=== PATIENT | female | born 1950 | race African-American/Black ===

== ENCOUNTER 2016-08-15 18:18 | Emergency (ER) | payer OTHER, MEDICAID ==
[~2016-08-15] VITALS: Ht 162.6 cm; Wt 99.8 kg
[~2016-08-15 18:18] MED LIST: ALBUAER3 IN; AML5T PO; ATOR20TA50 PO; CLON0.1T PO; DOCU100T15 PO; DONE10TA37 PO; ESCI20TA51 PO; GLIP-116 PO; GUA5DMLQ PO; HYDR25TA4 PO; LEVE100012 PO; LEVO250T45 PO; METF-489 PO; METH4PAK PO; SIMV-8 PO; SITA50TA PO
[2016-08-15 18:26] VITALS: BP 109/76
== END 2016-08-15 19:09 | disposition left against medical advice (07) ==
LOC: EDUNIT# 18:18 → ER 18:27
DX: F41.9 Anxiety disorder, unspecified (principal); Z53.21 Procedure and treatment not carried out due to patient leaving prior to being seen by health care provider

== ENCOUNTER 2016-11-12 13:50 | Inpatient (IN) | payer OTHER, MEDICAID ==
[~2016-11-12] VITALS: Ht 167.6 cm; Wt 92.7 kg
[~2016-11-12 13:50] MED LIST changes: +DEXTSYP8 PO; -GUA5DMLQ PO
[2016-11-12 15:41] LABS: Basophils # (auto) 0 uL; Basophils % (auto) 0.3 % (0.0-2.0); Eosinophils # (auto) 0.1 uL; Hematocrit 35.8 % (36.0-46.0); Hemoglobin 12.1 g/dL (12.2-16.2); Lymphocytes # (auto) 1.1 uL; Lymphocytes % (auto) 12.8 % (10.0-50.0); Mean Corpuscular Hemoglobin 30.2 pg (28.0-32.0); Mean Corpuscular Hgb Conc. 33.7 g/dL (32.0-36.0); Mean Corpuscular Volume 89.5 fL (80.0-100.0); Mean Platelet Volume 7.5 fL (7.4-10.4); Monocytes # (auto) 0.2 uL; Monocytes % (auto) 2.6 % (0.0-12.0); Neutrophils # (auto) 6.9 uL; Neutrophils % (auto) 83.3 % (37.0-80.0); Platelet Count (auto) 242 10^3/uL (140-450); Red Cell Distribution Width 13.4 % (11.6-16.0); White Blood Cell 8.3 10^3/uL (4.4-10.8)
[2016-11-12 16:03] LABS: Albumin 3.6 g/dL (3.4-5.0); Anion Gap 11 (5-15); Aspartate Aminotransferase 14 U/L (15-37); BUN/Creatinine Ratio 9.8; Blood Urea Nitrogen 11 mg/dL (7-18); Calcium 8.6 mg/dL (8.5-10.1); Carbon Dioxide 22 mmol/L (21-32); Chloride 115 mmol/L (98-107); GFR African American 63 mL/min; GFR Non-African American 52 mL/min; Glucose 122 mg/dL (74-106); Potassium 4.7 mmol/L (3.5-5.1); Sodium 148 mmol/L (136-145)
[2016-11-12 16:08] LABS: Alkaline Phosphatase 84 U/L (45-117); Bilirubin, Total 0.4 mg/dL (0.2-1.0); Total Protein 6.8 g/dL (6.4-8.2)
[2016-11-12 21:33] LABS: INR 0.97 (0.9-1.15); Partial Thromboplastin Time 28.9 sec (22.64-33.71); Prothrombin Time 10.6 sec (9.37-12.3)
[2016-11-12 21:46] LABS: Magnesium 2.4 mg/dL (1.6-2.6)
[2016-11-12] MEDS ORDERED: cefTRIAXone 1GM/50ML D5W 50 ML IV ONE (22:30)
[2016-11-12] MEDS ORDERED: AZITHROMYCIN 500MG/D5W 250ML 250 ML IV ONE (22:30)
[2016-11-12] MEDS ORDERED: DEXTROSE (50%) 50ML SYRG IV PRN (22:30)
[2016-11-12] MEDS: SOD CHL 0.45% 1,000 ML IV SCH (23:00)
[2016-11-12] MEDS ORDERED: LABETALOL HCL 5 MG/ML 4ML SYRINGE IV ONE (23:15)
[2016-11-13] VITALS (7 sets, daily range): BP systolic 115–156; BP diastolic 50–77
[2016-11-13] MEDS: ACCU-CHEK COMFORT CURVE STRIP VI SCH ×4 (06:12→22:02)
[2016-11-13] MEDS: InsuLIN REG 1unit/0.01ml Soln (100units/ml) SC SCH ×4 (06:13→22:00)
[2016-11-13] MEDS: ALBUTEROL SULF 2.5 MG/0.5ML(0.5%) NEB SOLN NEB SCH ×5 (06:30→23:46)
[2016-11-13] MEDS: IPRATROPIUM BROM 0.5 MG/2.5ML INH SOL NEB SCH ×5 (06:30→23:46)
[2016-11-13 06:57] LABS: Basophils # (auto) 0 uL; Basophils % (auto) 0.6 % (0.0-2.0); Eosinophils # (auto) 0.1 uL; Eosinophils % (auto) 0.8 % (0.0-7.0); Hematocrit 31.7 % (36.0-46.0); Hemoglobin 10.5 g/dL (12.2-16.2); Lymphocytes # (auto) 2.2 uL; Lymphocytes % (auto) 26.4 % (10.0-50.0); Mean Corpuscular Volume 90.8 fL (80.0-100.0); Mean Platelet Volume 7.9 fL (7.4-10.4); Monocytes # (auto) 0.4 uL; Monocytes % (auto) 4.2 % (0.0-12.0); Neutrophils # (auto) 5.7 uL; Platelet Count (auto) 235 10^3/uL (140-450); Red Cell Distribution Width 12.9 % (11.6-16.0); White Blood Cell 8.4 10^3/uL (4.4-10.8)
[2016-11-13 07:04] LABS: Calcium 8.3 mg/dL (8.5-10.1); Potassium 4.1 mmol/L (3.5-5.1)
[2016-11-13 07:12] LABS: BUN/Creatinine Ratio 13.5
[2016-11-13] MEDS: cefTRIAXone 1GM/50ML D5W 50 ML IV SCH (09:34)
[2016-11-13] MEDS: cloNIDine HCL 0.1 MG TAB PO SCH ×2 (10:32→22:00)
[2016-11-13] MEDS: AZITHROMYCIN 500MG/D5W 250ML 250 ML IV SCH (10:32)
[2016-11-13] MEDS ORDERED: LEVETIRACETAM 500 MG TAB PO ONE (14:45)
[2016-11-13] MEDS ORDERED: amLODIPine BESYLATE 5 MG TAB PO ONE (14:45)
[2016-11-13] MEDS ORDERED: HCTZ 25 MG TAB PO ONE (14:45)
[2016-11-13] MEDS: ASPirin-EC 81 mg tab PO SCH (17:46)
[2016-11-13] MEDS: SOD CHL 0.45% 1,000 ML IV SCH (18:23)
[2016-11-13] MEDS: LEVETIRACETAM 500 MG TAB PO SCH (21:35)
[2016-11-13] MEDS: ATORVASTATIN 20 MG TAB PO SCH (21:35)
[2016-11-13] MEDS: DONEPEZIL HYDROCHLORIDE 5 MG TAB PO SCH (21:39)
[2016-11-13] MEDS ORDERED: ACETAMINOPHEN 325 MG TAB PO PRN (23:30)
[2016-11-14] VITALS (7 sets, daily range): BP systolic 102–136; BP diastolic 49–96
[2016-11-14] MEDS: InsuLIN REG 1unit/0.01ml Soln (100units/ml) SC SCH ×4 (06:10→22:00)
[2016-11-14] MEDS: ACCU-CHEK COMFORT CURVE STRIP VI SCH ×4 (06:10→21:59)
[2016-11-14] MEDS: ALBUTEROL SULF 2.5 MG/0.5ML(0.5%) NEB SOLN NEB SCH ×3 (07:02→19:37)
[2016-11-14] MEDS: IPRATROPIUM BROM 0.5 MG/2.5ML INH SOL NEB SCH ×3 (07:02→19:37)
[2016-11-14 07:47] LABS: Basophils # (auto) 0 uL; Basophils % (auto) 0.6 % (0.0-2.0); Eosinophils # (auto) 0.3 uL; Eosinophils % (auto) 5.2 % (0.0-7.0); Hematocrit 31.2 % (36.0-46.0); Hemoglobin 10.4 g/dL (12.2-16.2); Lymphocytes # (auto) 2.2 uL; Lymphocytes % (auto) 34.1 % (10.0-50.0); Mean Corpuscular Hemoglobin 30.1 pg (28.0-32.0); Mean Corpuscular Hgb Conc. 33.5 g/dL (32.0-36.0); Mean Corpuscular Volume 89.8 fL (80.0-100.0); Mean Platelet Volume 7.7 fL (7.4-10.4); Monocytes # (auto) 0.5 uL; Monocytes % (auto) 7.9 % (0.0-12.0); Neutrophils # (auto) 3.3 uL; Neutrophils % (auto) 52.2 % (37.0-80.0); Platelet Count (auto) 219 10^3/uL (140-450); Red Cell Distribution Width 12.8 % (11.6-16.0); White Blood Cell 6.4 10^3/uL (4.4-10.8)
[2016-11-14 08:10] LABS: Calcium 7.7 mg/dL (8.5-10.1); Potassium 3.8 mmol/L (3.5-5.1)
[2016-11-14] MEDS: cefTRIAXone 1GM/50ML D5W 50 ML IV SCH (08:10)
[2016-11-14] MEDS: AZITHROMYCIN 500MG/D5W 250ML 250 ML IV SCH (09:46)
[2016-11-14] MEDS: HCTZ 25 MG TAB PO SCH (09:47)
[2016-11-14] MEDS: ASPirin-EC 81 mg tab PO SCH (09:47)
[2016-11-14] MEDS: cloNIDine HCL 0.1 MG TAB PO SCH ×2 (09:47→21:59)
[2016-11-14] MEDS: LEVETIRACETAM 500 MG TAB PO SCH ×2 (09:47→21:59)
[2016-11-14] MEDS: amLODIPine BESYLATE 5 MG TAB PO SCH (09:48)
[2016-11-14 11:31] LABS: Temperature: 23.1 C (20.0-25.0)
[2016-11-14] MEDS: SOD CHL 0.45% 1,000 ML IV SCH (14:30)
[2016-11-14 15:03] LABS: Urine Bilirubin Negative (Negative); Urine Blood Negative /uL (Negative); Urine Color Yellow (Yellow); Urine Glucose Normal (Normal); Urine Ketone Negative (Negative); Urine Nitrite Negative (Negative); Urine RBC 1 /hpf (0 - 4); Urine Squamous Epithelial Cell FEW /hpf (<5); Urine Urobilinogen Normal (Negative); Urine pH 5.5 (5.0-8.0)
[2016-11-14] MEDS: DONEPEZIL HYDROCHLORIDE 5 MG TAB PO SCH (21:59)
[2016-11-14] MEDS: ATORVASTATIN 20 MG TAB PO SCH (21:59)
[2016-11-15 05:00] VITALS: BP 107/51
[2016-11-15] MEDS: InsuLIN REG 1unit/0.01ml Soln (100units/ml) SC SCH ×3 (06:14→17:41)
[2016-11-15] MEDS: ACCU-CHEK COMFORT CURVE STRIP VI SCH ×3 (06:14→17:42)
[2016-11-15] MEDS: IPRATROPIUM BROM 0.5 MG/2.5ML INH SOL NEB SCH ×4 (06:28→18:00)
[2016-11-15] MEDS: ALBUTEROL SULF 2.5 MG/0.5ML(0.5%) NEB SOLN NEB SCH ×4 (06:28→18:00)
[2016-11-15 09:00] VITALS: BP 137/61
[2016-11-15] MEDS: cloNIDine HCL 0.1 MG TAB PO SCH (11:16)
[2016-11-15] MEDS: HCTZ 25 MG TAB PO SCH (11:17)
[2016-11-15] MEDS: amLODIPine BESYLATE 5 MG TAB PO SCH (11:18)
[2016-11-15] MEDS: ASPirin-EC 81 mg tab PO SCH (11:18)
[2016-11-15] MEDS: LEVETIRACETAM 500 MG TAB PO SCH (11:18)
[2016-11-15] MEDS: cefTRIAXone 1GM/50ML D5W 50 ML IV SCH (11:18)
[2016-11-15 12:27] VITALS: BP 152/73
[2016-11-15] MEDS: SOD CHL 0.45% 1,000 ML IV SCH (14:35)
[2016-11-15] MEDS: AZITHROMYCIN 500MG/D5W 250ML 250 ML IV SCH (14:35)
[2016-11-15 17:00] VITALS: BP 133/69
[2016-11-15] MEDS ORDERED: AZI250T PO (18:33)
[2016-11-15] MEDS ORDERED: ASP81EC PO (18:33)
[2016-11-15 18:47] VITALS: BP 152/73
[2016-11-15 20:00] VITALS: BP 136/75
[2016-11-16] MEDS ORDERED: AZITHROMYCIN 250 MG TAB PO SCH (10:00)
== END 2016-11-15 20:00 | disposition home or self-care (01) | DRG 637 ==
LOC: ER 13:50 → OVERFLOW 13:51 → WEST WING 11-13 00:34
PROVIDERS: ADMIT Internal Medicine; ATTEND Nurse Practitioner Acute Care
DX: E11.65 Type 2 diabetes mellitus with hyperglycemia (principal); G93.41 Metabolic encephalopathy; E87.0 Hyperosmolality and hypernatremia; E11.649 Type 2 diabetes mellitus with hypoglycemia without coma; J20.9 Acute bronchitis, unspecified; E78.5 Hyperlipidemia, unspecified; F17.210 Nicotine dependence, cigarettes, uncomplicated; F32.9 Major depressive disorder, single episode, unspecified; D64.9 Anemia, unspecified; F03.90 Unspecified dementia, unspecified severity, without behavioral disturbance, psychotic disturbance, mood disturbance, and anxiety; I10 Essential (primary) hypertension; I25.10 Atherosclerotic heart disease of native coronary artery without angina pectoris; Z79.899 Other long term (current) drug therapy; Z79.82 Long term (current) use of aspirin; Z90.710 Acquired absence of both cervix and uterus; Z82.49 Family history of ischemic heart disease and other diseases of the circulatory system; Z86.73 Personal history of transient ischemic attack (TIA), and cerebral infarction without residual deficits; Z83.3 Family history of diabetes mellitus; Z82.3 Family history of stroke
CPT/HCPCS: 36415; 70450; 71010; 80048; 80053; 81001; 82607; 82746; 82962; 83036; 83735; 84439; 84443; 84484; 85025; 85610; 85730; 87086; 93005; 94640; 94761; 95819; 96365; 96368; 96375; J0696; J1815; J3490

== ENCOUNTER 2017-04-04 19:44 | Emergency (ER) | payer MEDICARE, MEDICAID ==
[~2017-04-04] VITALS: Ht 167.6 cm; Wt 113.4 kg
[~2017-04-04 19:44] MED LIST changes: +ALPR0.25 PO; +ASP81EC PO; -DEXTSYP8 PO; -ESCI20TA51 PO; -LEVE100012 PO; -LEVO250T45 PO; -METH4PAK PO; -SITA50TA PO
[2017-04-04 20:19] LABS: Basophils # (auto) 0 uL; Basophils % (auto) 0.3 % (0.0-2.0); Eosinophils # (auto) 0.1 uL; Eosinophils % (auto) 0.7 % (0.0-7.0); Hematocrit 36.9 % (36.0-46.0); Hemoglobin 12.2 g/dL (12.2-16.2); Lymphocytes # (auto) 1.2 uL; Lymphocytes % (auto) 11.1 % (10.0-50.0); Mean Corpuscular Hemoglobin 29.8 pg (28.0-32.0); Mean Corpuscular Volume 90.3 fL (80.0-100.0); Mean Platelet Volume 7.5 fL (6.9-10.8); Monocytes # (auto) 0.4 uL; Monocytes % (auto) 4.1 % (0.0-12.0); Neutrophils # (auto) 8.8 uL; Neutrophils % (auto) 83.8 % (37.0-80.0); Platelet Count (auto) 235 10^3/uL (140-450); Red Cell Distribution Width 13.3 % (11.8-14.3); White Blood Cell 10.6 10^3/uL (4.4-10.8)
[2017-04-04 20:37] LABS: Albumin 3.6 g/dL (3.4-5.0); Anion Gap 13 (5-15); Aspartate Aminotransferase 12 U/L (15-37); BUN/Creatinine Ratio 23.1; Blood Urea Nitrogen 33 mg/dL (7-18); Calcium 8.7 mg/dL (8.5-10.1); Carbon Dioxide 27 mmol/L (21-32); Chloride 103 mmol/L (98-107); GFR African American 47 mL/min; GFR Non-African American 39 mL/min; Glucose 102 mg/dL (74-106); Magnesium 2.1 mg/dL (1.6-2.6); Sodium 143 mmol/L (136-145)
[2017-04-04 20:39] LABS: Alkaline Phosphatase 91 U/L (45-117); Bilirubin, Total 0.4 mg/dL (0.2-1.0); Total Protein 6.8 g/dL (6.4-8.2)
[2017-04-04 22:29] LABS: Urine Bilirubin Negative (Negative); Urine Blood Negative /uL (Negative); Urine Color Yellow (Yellow); Urine Glucose Normal (Normal); Urine Ketone Negative (Negative); Urine Nitrite Negative (Negative); Urine RBC <1 /hpf (0 - 4); Urine Squamous Epithelial Cell FEW /hpf (<5); Urine Urobilinogen Normal (Negative); Urine pH 5.5 (5.0-8.0)
[2017-04-05 00:16] VITALS: BP 126/37
== END 2017-04-05 00:18 | disposition home or self-care (01) ==
LOC: ER 19:44 → EDBD 19:44 → ER 04-05 00:18
DX: R41.82 Altered mental status, unspecified (principal); F03.90 Unspecified dementia, unspecified severity, without behavioral disturbance, psychotic disturbance, mood disturbance, and anxiety; F17.210 Nicotine dependence, cigarettes, uncomplicated; J44.9 Chronic obstructive pulmonary disease, unspecified; I25.10 Atherosclerotic heart disease of native coronary artery without angina pectoris; F41.9 Anxiety disorder, unspecified; F32.9 Major depressive disorder, single episode, unspecified; E11.9 Type 2 diabetes mellitus without complications; Z86.73 Personal history of transient ischemic attack (TIA), and cerebral infarction without residual deficits; I11.0 Hypertensive heart disease with heart failure; I50.9 Heart failure, unspecified; E78.5 Hyperlipidemia, unspecified; Z88.1 Allergy status to other antibiotic agents; Z88.6 Allergy status to analgesic agent; Z90.710 Acquired absence of both cervix and uterus
CPT/HCPCS: 36415; 70450; 80053; 81001; 83735; 84484; 85025

== ENCOUNTER 2018-07-19 17:54 | Emergency (ER) | payer MEDICARE, MEDICAID ==
[~2018-07-19] VITALS: Ht 160 cm; Wt 90.7 kg
[~2018-07-19 17:54] MED LIST changes: -DONE10TA37 PO; +DONE10TA40 PO; +KEP500T PO
[2018-07-19 19:58] LABS: Alanine Aminotransferase 11 U/L (13-56); Albumin 3.5 g/dL (3.4-5.0); Anion Gap 11 (5-15); Aspartate Aminotransferase 12 U/L (15-37); BUN/Creatinine Ratio 10.6; Blood Urea Nitrogen 15 mg/dL (7-18); Calcium 8.2 mg/dL (8.5-10.1); Carbon Dioxide 21 mmol/L (21-32); Chloride 106 mmol/L (98-107); GFR African American 47 mL/min; GFR Non-African American 39 mL/min; Glucose 62 mg/dL (74-106); Potassium 3.9 mmol/L (3.5-5.1); Sodium 138 mmol/L (136-145)
[2018-07-19 20:00] LABS: Alkaline Phosphatase 95 U/L (45-117); Bilirubin, Total 0.4 mg/dL (0.2-1.0); INR 0.94 (0.9-1.15); Partial Thromboplastin Time 29.9 sec (23.78-33.04); Prothrombin Time 10.1 sec (9.27-12.13); Total Protein 6.7 g/dL (6.4-8.2)
[2018-07-19 20:09] LABS: Basophils # (auto) 0.1 uL; Basophils % (auto) 0.7 % (0.0-2.0); Eosinophils # (auto) 0.3 uL; Eosinophils % (auto) 3.4 % (0.0-7.0); Hematocrit 39.2 % (36.0-46.0); Lymphocytes # (auto) 2.2 uL; Mean Corpuscular Hgb Conc. 33.2 g/dL (32.0-36.0); Mean Corpuscular Volume 90.4 fL (80.0-100.0); Monocytes # (auto) 0.4 uL; Monocytes % (auto) 5.2 % (0.0-12.0); Neutrophils # (auto) 4.6 uL; Neutrophils % (auto) 61.7 % (37.0-80.0); Nucleated Red Blood Cells % 0.1 %; Platelet Count (auto) 272 10^3/uL (140-450); Red Blood Cells 4.34 10^6/uL (4.0-5.20); Red Cell Distribution Width 12.2 % (11.8-14.3); White Blood Cell 7.5 10^3/uL (4.4-10.8)
[2018-07-19] MEDS ORDERED: AMLO5TAB13 PO (21:54)
[2018-07-19] MEDS ORDERED: METF-370 PO (21:54)
[2018-07-19] MEDS ORDERED: GLIP-116 PO (21:54)
[2018-07-19] MEDS ORDERED: OXCA600T3 PO (21:54)
[2018-07-19 22:35] VITALS: BP 114/64
== END 2018-07-19 23:37 | disposition home or self-care (01) ==
LOC: ER 17:54 → EDBD 17:54 → ER 23:37
DX: R41.82 Altered mental status, unspecified (principal); E11.649 Type 2 diabetes mellitus with hypoglycemia without coma; I25.119 Atherosclerotic heart disease of native coronary artery with unspecified angina pectoris; J44.9 Chronic obstructive pulmonary disease, unspecified; E78.5 Hyperlipidemia, unspecified; I11.0 Hypertensive heart disease with heart failure; I50.9 Heart failure, unspecified; Z90.49 Acquired absence of other specified parts of digestive tract; Z88.1 Allergy status to other antibiotic agents; Z88.5 Allergy status to narcotic agent; Z79.82 Long term (current) use of aspirin; Z79.84 Long term (current) use of oral hypoglycemic drugs; Z79.899 Other long term (current) drug therapy; Z86.73 Personal history of transient ischemic attack (TIA), and cerebral infarction without residual deficits
CPT/HCPCS: 36415; 70450; 71045; 80053; 82962; 83880; 84484; 85025; 85379; 85610; 85730; 93005

== ENCOUNTER 2018-08-20 00:03 | Emergency (ER) | payer MEDICARE, MEDICAID ==
[~2018-08-20] VITALS: Ht 165.1 cm; Wt 95.3 kg
[~2018-08-20 00:03] MED LIST changes: -AML5T PO; +AMLO5TAB13 PO; +METF-370 PO; -METF-489 PO; +OXCA600T3 PO
[2018-08-20] MEDS ORDERED: DEXTROSE 10% 250 ML IV ONE (00:30)
[2018-08-20 00:39] LABS: Basophils # (auto) 0 uL; Basophils % (auto) 0.4 % (0.0-2.0); Eosinophils # (auto) 0 uL; Eosinophils % (auto) 0.6 % (0.0-7.0); Hematocrit 39.2 % (36.0-46.0); Hemoglobin 12.8 g/dL (12.2-16.2); Lymphocytes % (auto) 13.1 % (10.0-50.0); Mean Corpuscular Hemoglobin 29.1 pg (28.0-32.0); Mean Corpuscular Hgb Conc. 32.7 g/dL (32.0-36.0); Monocytes # (auto) 0.4 uL; Monocytes % (auto) 4.5 % (0.0-12.0); Neutrophils # (auto) 6.5 uL; Neutrophils % (auto) 81.4 % (37.0-80.0); Nucleated Red Blood Cells % 0.1 %; Platelet Count (auto) 317 10^3/uL (140-450); Red Cell Distribution Width 12.6 % (11.8-14.3); White Blood Cell 7.9 10^3/uL (4.4-10.8)
[2018-08-20 00:55] LABS: Albumin 3.5 g/dL (3.4-5.0); BUN/Creatinine Ratio 11.4; Calcium 8.9 mg/dL (8.5-10.1); Potassium 4.2 mmol/L (3.5-5.1)
[2018-08-20 00:58] LABS: Bilirubin, Total 0.2 mg/dL (0.2-1.0)
[2018-08-20 01:42] LABS: INR 0.88 (0.9-1.15); Partial Thromboplastin Time 29.1 sec (23.78-33.04); Prothrombin Time 9.5 sec (9.27-12.13)
[2018-08-20 01:47] LABS: Blood Alcohol < 3.0 mg/dL (0-5)
[2018-08-20 04:31] VITALS: BP 119/68
== END 2018-08-20 04:33 | disposition home or self-care (01) ==
LOC: ER 00:03 → EDBD 00:03 → ER 04:33
DX: E11.649 Type 2 diabetes mellitus with hypoglycemia without coma (principal); I11.0 Hypertensive heart disease with heart failure; I50.9 Heart failure, unspecified; E78.5 Hyperlipidemia, unspecified; Z86.73 Personal history of transient ischemic attack (TIA), and cerebral infarction without residual deficits; Z90.710 Acquired absence of both cervix and uterus; Z90.89 Acquired absence of other organs; Z88.6 Allergy status to analgesic agent; Z88.1 Allergy status to other antibiotic agents; Z79.899 Other long term (current) drug therapy
CPT/HCPCS: 36415; 70450; 71045; 80053; 80320; 82962; 83735; 84484; 85025; 85610; 85730; 93005

== ENCOUNTER 2018-10-26 13:34 | Inpatient (IN) | payer MEDICARE, MEDICAID ==
[~2018-10-26] VITALS: Ht 167.6 cm; Wt 81.8 kg
[2018-10-26] MEDS ORDERED: SODIUM CHLORIDE 0.9% 500 ML IVB ONE (13:37)
[2018-10-26] MEDS ORDERED: LORazepam 2MG/ML-1ML VIAL IV ONE (13:45)
[2018-10-26 14:52] LABS: Basophils # (auto) 0.1 uL; Eosinophils # (auto) 0 uL; Eosinophils % (auto) 0.1 % (0.0-7.0); Hematocrit 35.7 % (36.0-46.0); Hemoglobin 11.9 g/dL (12.2-16.2); Lymphocytes # (auto) 1.5 uL; Lymphocytes % (auto) 19.5 % (10.0-50.0); Mean Corpuscular Hemoglobin 29.9 pg (28.0-32.0); Mean Corpuscular Hgb Conc. 33.3 g/dL (32.0-36.0); Mean Corpuscular Volume 89.8 fL (80.0-100.0); Monocytes # (auto) 0.4 uL; Monocytes % (auto) 5.4 % (0.0-12.0); Neutrophils # (auto) 5.5 uL; Platelet Count (auto) 291 10^3/uL (140-450); Red Blood Cells 3.98 10^6/uL (4.0-5.20); Red Cell Distribution Width 12.4 % (11.8-14.3); White Blood Cell 7.5 10^3/uL (4.4-10.8)
[2018-10-26 15:27] LABS: Cannabinoid Screen, Urine NEGATIVE (NEGATIVE)
[2018-10-26 15:28] LABS: Chloride 107 mmol/L (98-107); Potassium 3.8 mmol/L (3.5-5.1); Sodium 140 mmol/L (136-145)
[2018-10-26 15:34] LABS: Alanine Aminotransferase 12 U/L (13-56); Albumin 3.4 g/dL (3.4-5.0); Alkaline Phosphatase 99 U/L (45-117); Anion Gap 7 (5-15); Aspartate Aminotransferase 10 U/L (15-37); BUN/Creatinine Ratio 13.3; Bilirubin, Total 0.5 mg/dL (0.2-1.0); Blood Alcohol < 3.0 mg/dL (0-5); Blood Urea Nitrogen 18 mg/dL (7-18); Calcium 8.2 mg/dL (8.5-10.1); Carbon Dioxide 26 mmol/L (21-32); GFR African American 50 mL/min; GFR Non-African American 42 mL/min; Glucose 130 mg/dL (74-106); Magnesium 2.4 mg/dL (1.6-2.6); Total Protein 6.5 g/dL (6.4-8.2)
[2018-10-26 15:35] LABS: Alcohol, Urine < 3.0 mg/dL (0-5); Amphetamine Screen, Urine NEGATIVE (NEGATIVE); Barbiturate Scree,Urine NEGATIVE (NEGATIVE); Benzodiazephine Screen, Urine NEGATIVE (NEGATIVE); Cocaine Screen, Urine NEGATIVE (NEGATIVE); Opiate Scree,Urine NEGATIVE (NEGATIVE); Phencyclidine Screen, Urine NEGATIVE (NEGATIVE)
[2018-10-26 15:42] LABS: Urine Bacteria NONE SEEN /hpf (None Seen); Urine Blood Negative /uL (Negative); Urine Specific Gravity 1.011 (1.001-1.035); Urine WBC 1 /hpf (0 - 5)
[2018-10-26] MEDS ORDERED: DEXTROSE (50%) 50ML SYRG IV PRN (16:30)
[2018-10-26] MEDS ORDERED: NITROGLYCERIN 0.4 MG SL TAB SL PRN (16:30)
[2018-10-26] MEDS ORDERED: traMADol HCL 50 MG TAB PO PRN (16:30)
[2018-10-26] MEDS ORDERED: ACETAMINOPHEN 500 MG TAB PO PRN (16:30)
[2018-10-26] MEDS ORDERED: LACTULOSE 20Gm/30ML SOLN PO PRN (16:30)
[2018-10-26] MEDS ORDERED: TEMAZEPAM 15 MG CAP PO PRN (16:30)
[2018-10-26] MEDS ORDERED: ONDANSETRON HCL 4 MG/2 ML VIAL IV PRN (16:30)
[2018-10-26] MEDS: SODIUM CHLORIDE 0.9% 1,000 ML IV SCH (16:44)
[2018-10-26] MEDS: InsuLIN REG 1unit/0.01ml Soln (100units/ml) SC SCH ×2 (17:00→22:00)
[2018-10-26] MEDS: ACCU-CHEK COMFORT CURVE STRIP VI SCH ×2 (17:16→22:01)
[2018-10-26] MEDS ORDERED: SIMVASTATIN PO SCH (18:00)
[2018-10-26] MEDS: cloNIDine HCL 0.1 MG TAB PO SCH (22:00)
[2018-10-26] MEDS: DOCUSATE SOD 100 MG CAP PO SCH (22:00)
[2018-10-26] MEDS ORDERED: LEVETIRACETAM 500 MG TAB PO SCH (22:00)
[2018-10-26] MEDS ORDERED: DONEPEZIL HYDROCHLORIDE 5 MG TAB PO SCH (22:00)
[2018-10-26] MEDS ORDERED: OXcarbazepine 300 MG TAB PO SCH (22:00)
[2018-10-26] MEDS: ATORVASTATIN 20 MG TAB PO SCH (22:01)
[2018-10-26 23:55] VITALS: BP 148/72
--- NOTE | 2018-10-26 23:55 | NUR ---
Telemetry admit from ER LLOYDMOLLY admitted to Telemetry unit after SBAR received. Patient oriented to Yasmeen Rabago, RN primary RN, unit, room, bed, and unit policies regarding patient care and visiting hours. Patient now on continuous telemetry monitoring, tele box # and telemetry reading on arrival to unit is . Patient placed on bedside oxygen, weighed by bedscale and encouraged to call if they need something. All questions and concerns addressed, patient verbalized understanding. Note: awake, confused, oriented x2, reoriented to time and situation, patient follows directions but at time does not answer questions. on room air with even and unlabored respirations. no s/s of distress or SOB. patient denies pain. IV to right EJ intact and patent infusing NS at 80ml/hr. Left hand IV intact and patent. daughter at bedside, answered admission questions. Rojas intact and draining to gravity. sitter at bedside. will continue care.
[2018-10-27] MEDS ORDERED: LAMO25TA2 PO (02:23)
[2018-10-27] MEDS ORDERED: POTA1080 PO (02:23)
[2018-10-27] MEDS: SODIUM CHLORIDE 0.9% 1,000 ML IV SCH (04:56)
[2018-10-27] MEDS: ACCU-CHEK COMFORT CURVE STRIP VI SCH (06:07)
[2018-10-27] MEDS: InsuLIN REG 1unit/0.01ml Soln (100units/ml) SC SCH (06:07)
--- NOTE | 2018-10-27 07:00 | NUR ---
Closing Note patient resting in bed on room air with even and unlabored respirations, no s/s of distress. IV intact and infusing NS at 80ml/hr. sitter at bedside. endorsed care to day shift FLAKITO Valdez.
--- NOTE | 2018-10-27 08:00 | NUR ---
Opening Shift Note Assumed care of patient, awake and alert, making jokes. Patient is up in the chair. Sitter reported she is not eating well. No S/S of distress/SOB or pain. Instructed on POC and to call for assist PRN, will continue to monitor for changes Q1hr and PRN.
[2018-10-27 09:00] VITALS: BP 124/55
[2018-10-27] MEDS ORDERED: ASPirin-EC 81 mg tab PO SCH (10:00)
[2018-10-27] MEDS ORDERED: PANTOPRAZOLE 40 MG TAB PO SCH (10:00)
[2018-10-27] MEDS ORDERED: ENOXAPARIN SOD 40 MG/0.4 ML SYRINGE SC SCH (10:00)
--- NOTE | 2018-10-27 10:20 | NUR ---
Family at bedside Family at bedside. MD at bedside. Patient sitting up talking to family. Significant other reported she is not herself. She doesn't know where she is and she was incontinent at home. He said usually she is oriented and making jokes. MD stated he would have Dr. Lai see her.
--- NOTE | 2018-10-27 10:45 | NUR ---
Held AM medications Significant other stated she does not take Keppra and Trileptal at home. She takes Lamictal 25 mg. He stated that if she is given the Keppra 1000 mg, she will be comatose. Talked with Dr. Daley and he said to hold the Keppra and Trileptal for now and consult Dr. Lai about the seizure medications. This nurse held all morning PO medications because patient sleeping and difficult to arouse. Unsafe to put anything in patient's mouth at this time. Will try again.
[2018-10-27] MEDS: cloNIDine HCL 0.1 MG TAB PO SCH ×2 (11:55→21:45)
[2018-10-27] MEDS: DOCUSATE SOD 100 MG CAP PO SCH ×2 (11:56→21:45)
[2018-10-27] MEDS: amLODIPine BESYLATE 5 MG TAB PO SCH (11:56)
--- NOTE | 2018-10-27 11:57 | NUR ---
ALERT PATIENT ALERT AND TALKATIVE. GAVE MORNING MEDICATIONS.
[2018-10-27 13:00] VITALS: BP 139/65
[2018-10-27] MEDS ORDERED: HYDROcodone-ACET 5/325MG TAB PO PRN (14:30)
--- NOTE | 2018-10-27 14:30 | NUR ---
MEDICATION CHANGES KEPPRA AND TRILEPTAL NOT GIVEN. FAMILY MEMBER STATED SHE DOESN'T TAKE THESE AT HOME. SHE TAKES LAMICTAL. TALKED WITH DR. BERRIOS ABOUT THESE MEDICATIONS. HE D/CD THE KEPPRA AND TRILEPTAL AND STARTED THE LAMICTAL HERE AT THE HOSPITAL.
[2018-10-27 16:56] VITALS: BP 123/77
[2018-10-27] MEDS: ATORVASTATIN 20 MG TAB PO SCH (21:45)
[2018-10-27] MEDS: lamoTRIgine 25 MG TAB PO SCH (21:45)
[2018-10-27 22:44] VITALS: BP 143/61
[2018-10-28 04:47] VITALS: BP 100/47
[2018-10-28 05:31] LABS: Basophils # (auto) 0 uL; Basophils % (auto) 0.7 % (0.0-2.0); Eosinophils # (auto) 0.1 uL; Eosinophils % (auto) 2.4 % (0.0-7.0); Hematocrit 30.5 % (36.0-46.0); Hemoglobin 10.4 g/dL (12.2-16.2); Lymphocytes # (auto) 2.2 uL; Lymphocytes % (auto) 38.1 % (10.0-50.0); Mean Corpuscular Hemoglobin 30.9 pg (28.0-32.0); Mean Corpuscular Hgb Conc. 34.2 g/dL (32.0-36.0); Mean Corpuscular Volume 90.3 fL (80.0-100.0); Monocytes # (auto) 0.4 uL; Monocytes % (auto) 7.4 % (0.0-12.0); Neutrophils % (auto) 51.4 % (37.0-80.0); Platelet Count (auto) 223 10^3/uL (140-450); Red Blood Cells 3.38 10^6/uL (4.0-5.20); Red Cell Distribution Width 12.2 % (11.8-14.3); White Blood Cell 5.8 10^3/uL (4.4-10.8)
[2018-10-28 05:59] LABS: BUN/Creatinine Ratio 14.8; Calcium 8.3 mg/dL (8.5-10.1); Potassium 3.9 mmol/L (3.5-5.1)
--- NOTE | 2018-10-28 08:00 | NUR ---
Opening Shift Note Assumed care of patient, awake and alert. Very confused. Patient pulled IV out of her left hand, this nurse saw it lying in the bed next to her. No S/S of distress/SOB or pain. Instructed on POC and to call for assist PRN, will continue to monitor for changes Q1hr and PRN.
[2018-10-28 09:13] VITALS: BP 148/71
[2018-10-28 10:29] LABS: Hematocrit 34.5 % (36.0-46.0); Hemoglobin 11.3 g/dL (12.2-16.2)
[2018-10-28] MEDS: SODIUM CHLORIDE 0.9% 1,000 ML IV SCH ×2 (10:43→22:30)
[2018-10-28] MEDS: cloNIDine HCL 0.1 MG TAB PO SCH ×2 (10:46→22:26)
[2018-10-28] MEDS: amLODIPine BESYLATE 5 MG TAB PO SCH (10:46)
[2018-10-28] MEDS: DOCUSATE SOD 100 MG CAP PO SCH ×2 (10:47→22:26)
[2018-10-28] MEDS: lamoTRIgine 25 MG TAB PO SCH ×2 (10:47→22:25)
[2018-10-28] MEDS: PANTOPRAZOLE 40 MG TAB PO SCH ×2 (10:47→22:25)
--- NOTE | 2018-10-28 13:00 | NUR ---
PATIENT/MD BERRIOS PATIENT IS CONFUSED TODAY. DR. BERRIOS SAW HER AND SAID HE HAS SEEN HER BEFORE AND THAT THIS IS HER BASELINE CONFUSION LEVEL. HE SAID SHE IS OK TO BE DISCHARGED WHEN DR. ENG FEELS SHE IS READY.
[2018-10-28 13:06] VITALS: BP 134/68
[2018-10-28 16:25] LABS: Hematocrit 37.8 % (36.0-46.0); Hemoglobin 12.7 g/dL (12.2-16.2)
[2018-10-28 17:04] VITALS: BP 147/72
--- NOTE | 2018-10-28 19:45 | NUR ---
Opening Shift Note Assumed care of patient, awake and pleasantly confused. No S/S of distress/SOB or pain. data entry coordinator at bedside.
[2018-10-28 21:30] VITALS: BP 140/74
[2018-10-28] MEDS: ATORVASTATIN 20 MG TAB PO SCH (22:26)
--- NOTE | 2018-10-28 22:30 | NUR ---
Patient refused IV insertion.
[2018-10-28 22:32] LABS: Hematocrit 35.5 % (36.0-46.0); Hemoglobin 11.9 g/dL (12.2-16.2)
[2018-10-28 22:36] LABS: % Iron Saturation 7.8 % (15-50)
[2018-10-29] MEDS ORDERED: FLEET ENEMA(ADULT) 135 ML PR ONE (00:15)
[2018-10-29] MEDS ORDERED: LACTULOSE 20Gm/30ML SOLN PO ONE (00:30)
[2018-10-29 05:01] VITALS: BP 118/61
[2018-10-29 06:18] LABS: Basophils # (auto) 0.1 uL; Basophils % (auto) 1.4 % (0.0-2.0); Eosinophils # (auto) 0.2 uL; Eosinophils % (auto) 3.5 % (0.0-7.0); Hematocrit 33.1 % (36.0-46.0); Hemoglobin 11.2 g/dL (12.2-16.2); Lymphocytes # (auto) 1.9 uL; Lymphocytes % (auto) 28.4 % (10.0-50.0); Mean Corpuscular Hgb Conc. 33.7 g/dL (32.0-36.0); Mean Corpuscular Volume 88.8 fL (80.0-100.0); Monocytes # (auto) 0.4 uL; Monocytes % (auto) 6.3 % (0.0-12.0); Neutrophils # (auto) 4.1 uL; Neutrophils % (auto) 60.4 % (37.0-80.0); Nucleated Red Blood Cells % 0.2 %; Platelet Count (auto) 231 10^3/uL (140-450); Red Blood Cells 3.73 10^6/uL (4.0-5.20); Red Cell Distribution Width 12.2 % (11.8-14.3); White Blood Cell 6.7 10^3/uL (4.4-10.8)
[2018-10-29 06:23] LABS: Alanine Aminotransferase 14 U/L (13-56); Albumin 3.2 g/dL (3.4-5.0); Anion Gap 8 (5-15); Aspartate Aminotransferase 11 U/L (15-37); BUN/Creatinine Ratio 11.4; Blood Urea Nitrogen 16 mg/dL (7-18); Calcium 8.3 mg/dL (8.5-10.1); Carbon Dioxide 23 mmol/L (21-32); Chloride 113 mmol/L (98-107); GFR African American 48 mL/min; GFR Non-African American 40 mL/min; Glucose 113 mg/dL (74-106); Sodium 144 mmol/L (136-145)
[2018-10-29 06:25] LABS: Alkaline Phosphatase 103 U/L (45-117); Bilirubin, Total 0.2 mg/dL (0.2-1.0); Total Protein 6.2 g/dL (6.4-8.2)
[2018-10-29 08:28] VITALS: BP 136/70
[2018-10-29 10:33] LABS: Carcinoembryonic Antigen 1.24 ng/mL (<5.0 OR =); Folate (Folic Acid) 7.47 ng/mL (5.38-24)
[2018-10-29] MEDS: PANTOPRAZOLE 40 MG TAB PO SCH (11:43)
[2018-10-29] MEDS: DOCUSATE SOD 100 MG CAP PO SCH (11:43)
[2018-10-29] MEDS: amLODIPine BESYLATE 5 MG TAB PO SCH (11:44)
[2018-10-29] MEDS: cloNIDine HCL 0.1 MG TAB PO SCH (11:45)
[2018-10-29] MEDS: lamoTRIgine 25 MG TAB PO SCH (11:45)
[2018-10-29] MEDS: SODIUM CHLORIDE 0.9% 1,000 ML IV SCH (11:46)
[2018-10-29 12:30] VITALS: BP 142/76
--- NOTE | 2018-10-29 13:27 | NUR ---
Valdes catheter discontinued Order to discontinue valdes catheter per discharge. Valdes discontinued with clean technique following deflation of balloon. Patient tolerated well with no complaints of pain. Continue care. 400ml of clear yellow urine emptied from catheter prior to removal. Patient's primary RN, Audie, notified.
[2018-10-29 16:31] VITALS: BP 137/74
--- NOTE | 2018-10-29 18:46 | NUR ---
PATIENT WENT HOME FEELING GREAT VITALS SIGNS IN NORMAL LIMITS ALL DC INSTRUCTION GAVE TO THE PATIENT//Thad RN
== END 2018-10-29 18:17 | disposition home or self-care (01) | DRG 101 ==
LOC: EDBD 13:34 → ER 13:39 → TELE 16:29 → TELE-CENTR 22:07 → CENTRAL 10-27 11:00
PROVIDERS: ADMIT Internal Medicine; ATTEND Internal Medicine
DX: G40.909 Epilepsy, unspecified, not intractable, without status epilepticus (principal); I13.0 Hypertensive heart and chronic kidney disease with heart failure and stage 1 through stage 4 chronic kidney disease, or unspecified chronic kidney disease; E72.23 Citrullinemia; F02.80 Dementia in other diseases classified elsewhere, unspecified severity, without behavioral disturbance, psychotic disturbance, mood disturbance, and anxiety; G30.9 Alzheimer's disease, unspecified; J44.9 Chronic obstructive pulmonary disease, unspecified; E11.22 Type 2 diabetes mellitus with diabetic chronic kidney disease; E78.5 Hyperlipidemia, unspecified; F41.9 Anxiety disorder, unspecified; F32.9 Major depressive disorder, single episode, unspecified; E11.65 Type 2 diabetes mellitus with hyperglycemia; D63.8 Anemia in other chronic diseases classified elsewhere; I25.10 Atherosclerotic heart disease of native coronary artery without angina pectoris; I50.9 Heart failure, unspecified; N18.3 Chronic kidney disease, stage 3 (moderate); Z86.73 Personal history of transient ischemic attack (TIA), and cerebral infarction without residual deficits; Z90.710 Acquired absence of both cervix and uterus; Z88.1 Allergy status to other antibiotic agents; Z79.51 Long term (current) use of inhaled steroids; Z79.899 Other long term (current) drug therapy; Z79.01 Long term (current) use of anticoagulants; Z79.82 Long term (current) use of aspirin; Z88.5 Allergy status to narcotic agent; Z83.49 Family history of other endocrine, nutritional and metabolic diseases; Z79.84 Long term (current) use of oral hypoglycemic drugs
CPT/HCPCS: 36415; 51702; 70450; 71045; 74176; 80048; 80053; 80307; 80320; 81001; 82378; 82550; 82607; 82746; 82962; 83036; 83540; 83550; 83735; 84443; 84484; 85014; 85018; 85025; 85045; 93005; 94761; 96361; 96374; G0378

== ENCOUNTER 2018-12-11 17:25 | Emergency (ER) | payer MEDICARE, MEDICAID ==
[~2018-12-11] VITALS: Ht 162.6 cm; Wt 104.3 kg
[~2018-12-11 17:25] MED LIST changes: -ALBUAER3 IN; -ALPR0.25 PO; -AMLO5TAB13 PO; -CLON0.1T PO; -DOCU100T15 PO; -DONE10TA40 PO; -HYDR25TA4 PO; -KEP500T PO; -METF-370 PO; -OXCA600T3 PO; +PHE100C PO; +POTA1080 PO; -SIMV-8 PO
[2018-12-11] MEDS ORDERED: SODIUM CHLORIDE 0.9% 1,000 ML IVB ONE (17:57)
[2018-12-11 18:07] LABS: Basophils # (auto) 0.4 uL; Basophils % (auto) 4.7 % (0.0-2.0); Eosinophils # (auto) 0.3 uL; Eosinophils % (auto) 3.5 % (0.0-7.0); Hematocrit 38.6 % (36.0-46.0); Hemoglobin 12.7 g/dL (12.2-16.2); Lymphocytes # (auto) 0.8 uL; Lymphocytes % (auto) 10.7 % (10.0-50.0); Mean Corpuscular Hgb Conc. 32.8 g/dL (32.0-36.0); Mean Corpuscular Volume 88.3 fL (80.0-100.0); Monocytes # (auto) 0.4 uL; Monocytes % (auto) 4.7 % (0.0-12.0); Neutrophils # (auto) 5.9 uL; Neutrophils % (auto) 76.4 % (37.0-80.0); Platelet Count (auto) 258 10^3/uL (140-450); Red Blood Cells 4.37 10^6/uL (4.0-5.20); White Blood Cell 7.7 10^3/uL (4.4-10.8)
[2018-12-11 18:20] LABS: Albumin 3.6 g/dL (3.4-5.0); Calcium 8.8 mg/dL (8.5-10.1); Potassium 4.2 mmol/L (3.5-5.1)
[2018-12-11 18:23] LABS: BUN/Creatinine Ratio 17.6; Bilirubin, Total 0.2 mg/dL (0.2-1.0); Total Protein 6.9 g/dL (6.4-8.2)
[2018-12-11] MEDS ORDERED: PHENYTOIN SODIUM 50 MG/ML 2ML VIAL IV ONE ×2 (20:45→20:53)
[2018-12-11] MEDS ORDERED: PHENYTOIN SODIUM 50 MG/ML 5ML INJ VIAL IV ONE (21:27)
[2018-12-11 23:38] VITALS: BP 127/65
== END 2018-12-11 21:12 | disposition home or self-care (01) ==
LOC: EDBD 17:25 → ER 17:25
DX: R56.9 Unspecified convulsions (principal); R89.2 Abnormal level of other drugs, medicaments and biological substances in specimens from other organs, systems and tissues; I11.0 Hypertensive heart disease with heart failure; I50.9 Heart failure, unspecified; J44.9 Chronic obstructive pulmonary disease, unspecified; E11.9 Type 2 diabetes mellitus without complications; E78.5 Hyperlipidemia, unspecified; F17.210 Nicotine dependence, cigarettes, uncomplicated; Z86.73 Personal history of transient ischemic attack (TIA), and cerebral infarction without residual deficits
CPT/HCPCS: 36415; 70450; 80053; 80185; 85025; 93005; 94761; 96374; 99284; J1165

== ENCOUNTER 2018-12-27 20:59 | Emergency (ER) | payer MEDICARE, MEDICAID ==
[~2018-12-27] VITALS: Ht 165.1 cm; Wt 81.6 kg
[~2018-12-27 20:59] MED LIST changes: -GLIP-116 PO; +GLIP10TA9 PO
[2018-12-27 22:41] LABS: Basophils # (auto) 0.1 uL; Eosinophils # (auto) 0.3 uL; Eosinophils % (auto) 4.8 % (0.0-7.0); Hematocrit 36.1 % (36.0-46.0); Hemoglobin 12.2 g/dL (12.2-16.2); Lymphocytes # (auto) 2.2 uL; Lymphocytes % (auto) 33.7 % (10.0-50.0); Mean Corpuscular Hemoglobin 29.7 pg (28.0-32.0); Mean Corpuscular Hgb Conc. 33.7 g/dL (32.0-36.0); Mean Corpuscular Volume 88.2 fL (80.0-100.0); Monocytes # (auto) 0.4 uL; Monocytes % (auto) 6.4 % (0.0-12.0); Neutrophils # (auto) 3.5 uL; Neutrophils % (auto) 54.1 % (37.0-80.0); Nucleated Red Blood Cells % 0.2 %; Platelet Count (auto) 258 10^3/uL (140-450); Red Blood Cells 4.09 10^6/uL (4.0-5.20); Red Cell Distribution Width 12.2 % (11.8-14.3); White Blood Cell 6.5 10^3/uL (4.4-10.8)
[2018-12-27 22:55] LABS: INR 0.95 (0.9-1.15); Partial Thromboplastin Time 28.8 sec (23.64-32.05)
[2018-12-27 22:58] LABS: Albumin 3.2 g/dL (3.4-5.0); Calcium 8.4 mg/dL (8.5-10.1); Phenytoin (Dilantin) 11.3 ug/mL (10-20); Potassium 3.7 mmol/L (3.5-5.1)
[2018-12-27 23:02] LABS: Bilirubin, Total 0.2 mg/dL (0.2-1.0); Total Protein 6.6 g/dL (6.4-8.2)
[2018-12-27] MEDS ORDERED: VALPROATE INJ 1,000 MG in SODIUM CHL 0.9% 100 ML IV ONE (23:30)
[2018-12-27] MEDS ORDERED: PHENYTOIN SODIUM 100 MG CAP PO ONE (23:30)
[2018-12-28 00:12] VITALS: BP 152/63
== END 2018-12-27 23:46 | disposition home or self-care (01) ==
LOC: EDBD 20:59 → ER 21:03
DX: G40.909 Epilepsy, unspecified, not intractable, without status epilepticus (principal); F02.80 Dementia in other diseases classified elsewhere, unspecified severity, without behavioral disturbance, psychotic disturbance, mood disturbance, and anxiety; F09 Unspecified mental disorder due to known physiological condition; F17.210 Nicotine dependence, cigarettes, uncomplicated; I11.0 Hypertensive heart disease with heart failure; I50.9 Heart failure, unspecified; J44.9 Chronic obstructive pulmonary disease, unspecified; F32.9 Major depressive disorder, single episode, unspecified; E11.9 Type 2 diabetes mellitus without complications; F41.9 Anxiety disorder, unspecified; E78.5 Hyperlipidemia, unspecified; Z90.49 Acquired absence of other specified parts of digestive tract; Z86.73 Personal history of transient ischemic attack (TIA), and cerebral infarction without residual deficits
CPT/HCPCS: 36415; 70450; 80053; 80164; 80185; 85025; 85610; 85730

== ENCOUNTER 2019-02-09 12:00 | Emergency (ER) | payer MEDICARE, MEDICAID ==
[~2019-02-09] VITALS: Ht 167.6 cm; Wt 85.3 kg
[2019-02-09 12:27] VITALS: BP 141/73
== END 2019-02-09 14:38 | disposition left against medical advice (07) ==
LOC: ER 12:05
DX: R05 Cough (principal); Z53.21 Procedure and treatment not carried out due to patient leaving prior to being seen by health care provider
CPT/HCPCS: 82962

== ENCOUNTER 2019-07-25 07:14 | Inpatient (IN) | payer MEDICARE, MEDICAID ==
[2019-07-25] VITALS (63 sets, daily range): BP systolic 51–143; BP diastolic 26–82
[~2019-07-25] VITALS: Ht 162.6 cm; Wt 103.0 kg
[2019-07-25] MEDS ORDERED: SODIUM CHLORIDE 0.9% 1,000 ML IV ONE (07:24)
[2019-07-25] MEDS ORDERED: LORazepam 2MG/ML-1ML VIAL IV ONE (07:35)
[2019-07-25] MEDS ORDERED: LORazepam 2MG/ML-1ML VIAL ONE (07:36)
[2019-07-25] MEDS ORDERED: MIDAZOLAM HCL 1MG/1ML-2 ML VIAL ONE (07:42)
[2019-07-25] MEDS ORDERED: MIDAZOLAM HCL 1MG/1ML-2 ML VIAL IV ONE (07:45)
[2019-07-25 08:07] LABS: Basophils # (auto) 0.1 uL; Basophils % (auto) 0.7 % (0.0-2.0); Eosinophils # (auto) 0 uL; Eosinophils % (auto) 0.2 % (0.0-7.0); Hematocrit 35.7 % (36.0-46.0); Hemoglobin 11.7 g/dL (12.2-16.2); Lymphocytes # (auto) 1.1 uL; Lymphocytes % (auto) 11.9 % (10.0-50.0); Mean Corpuscular Hemoglobin 29.9 pg (28.0-32.0); Mean Corpuscular Hgb Conc. 32.9 g/dL (32.0-36.0); Mean Corpuscular Volume 90.9 fL (80.0-100.0); Monocytes # (auto) 0.6 uL; Monocytes % (auto) 6.7 % (0.0-12.0); Neutrophils # (auto) 7.2 uL; Neutrophils % (auto) 80.5 % (37.0-80.0); Platelet Count (auto) 206 10^3/uL (140-450); Red Blood Cells 3.93 10^6/uL (4.0-5.20); Red Cell Distribution Width 12.7 % (11.8-14.3); White Blood Cell 8.9 10^3/uL (4.4-10.8)
[2019-07-25] MEDS ORDERED: IPRATROPIUM BROM 0.5 MG/2.5ML INH SOL NEB ONE (08:15)
[2019-07-25] MEDS ORDERED: methylPREDNISolone SOD SUCC 125 MG/2 ML VL IV ONE (08:15)
[2019-07-25] MEDS ORDERED: ALBUTEROL SULF 2.5 MG/0.5ML(0.5%) NEB SOLN NEB ONE (08:15)
[2019-07-25 08:19] LABS: Albumin 3.5 g/dL (3.4-5.0); Calcium 8.1 mg/dL (8.5-10.1); Potassium 3.5 mmol/L (3.5-5.1)
[2019-07-25 08:25] LABS: BUN/Creatinine Ratio 9.3; Bilirubin, Total 1.1 mg/dL (0.2-1.0); Total Protein 7.1 g/dL (6.4-8.2)
[2019-07-25 08:27] LABS: INR 1.03 (0.9-1.15); Partial Thromboplastin Time 30.6 sec (23.64-32.05)
[2019-07-25] MEDS ORDERED: MIDAZOLAM DRIP 50 mg/50mL 50 ML IV ONE (08:42)
[2019-07-25] MEDS ORDERED: SUCCINYLCHOLINE CHLORIDE 20 MG/ML 10ML VIAL IV ONE ×2 (08:42→08:43)
[2019-07-25] MEDS ORDERED: ETOMIDATE (2MG/ML) 20ML VIAL IV ONE ×2 (08:42→08:43)
[2019-07-25] MEDS: MIDAZOLAM DRIP 50 mg/50mL 50 ML IV SCH ×4 (08:45→22:56)
[2019-07-25] MEDS ORDERED: MIDAZOLAM HCL 5 MG/ML-1ML VIAL IV ONE (08:51)
[2019-07-25] MEDS ORDERED: PROPOFOL 100 ML IV ONE (08:57)
[2019-07-25] MEDS: PROPOFOL 100 ML IV SCH ×2 (08:58→11:16)
[2019-07-25] MEDS ORDERED: PIPERACILLIN-TAZOB 3.375GM 100 ML IV ONE (09:45)
[2019-07-25] MEDS ORDERED: SODIUM CHLORIDE 0.9% 1,000 ML IV SCH (09:56)
[2019-07-25] MEDS ORDERED: ALBUTEROL SULF 2.5 MG/0.5ML(0.5%) NEB SOLN NEB PRN (10:00)
[2019-07-25] MEDS ORDERED: NITROGLYCERIN 0.4 MG SL TAB SL PRN (10:00)
[2019-07-25] MEDS ORDERED: LORazepam 2MG/ML-1ML VIAL IV PRN (10:00)
[2019-07-25] MEDS ORDERED: MORPHINE SULF INJ 2 MG/ML SYRINGE 1ML IV PRN (10:00)
[2019-07-25] MEDS ORDERED: OSELTAMIVIR 75 MG CAP PO ONE (10:00)
[2019-07-25] MEDS: ENOXAPARIN SOD 40 MG/0.4 ML SYRINGE SC SCH (10:00)
[2019-07-25] MEDS ORDERED: DEXTROSE (50%) 50ML SYRG IV PRN (10:00)
[2019-07-25] MEDS ORDERED: levETIRAcetam 500 MG/5ML ORAL SOLN UD GT SCH (10:00)
[2019-07-25] MEDS ORDERED: NALBUPHINE HCL 10 MG/1ml INJECTION IV PRN (10:00)
[2019-07-25 10:51] LABS: Lactic Acid w/Reflex 2.5 mmol/L (0.4-2.0)
[2019-07-25] MEDS: IPRATROPIUM BROM 0.5 MG/2.5ML INH SOL NEB SCH ×2 (11:14→19:10)
[2019-07-25] MEDS: ALBUTEROL SULF 2.5 MG/0.5ML(0.5%) NEB SOLN NEB SCH ×2 (11:14→19:10)
[2019-07-25] MEDS: InsuLIN REG 1unit/0.01ml Soln (100units/ml) SC SCH ×2 (12:14→17:49)
[2019-07-25] MEDS: ACCU-CHEK COMFORT CURVE STRIP VI SCH ×2 (12:14→17:48)
[2019-07-25] MEDS: SODIUM CHLORIDE 0.9% 1,000 ML IV SCH ×2 (12:40→21:18)
[2019-07-25] MEDS: DOXYCYCLINE 100MG/250ML 250 ML IV SCH ×2 (13:43→22:06)
[2019-07-25] MEDS ORDERED: PHENYTOIN 100 MG/4 ML SUSP GT SCH (14:00)
[2019-07-25 17:32] LABS: Urine Bacteria NONE SEEN /hpf (None Seen); Urine Blood TRACE /uL (Negative); Urine Hyaline Cast FEW /lpf (0 - 2); Urine Mucus FEW (None Seen); Urine Specific Gravity 1.016 (1.001-1.035); Urine WBC 7 /hpf (0 - 5)
[2019-07-25 17:59] LABS: Alcohol, Urine < 3.0 mg/dL (0-5); Amphetamine Screen, Urine NEGATIVE (NEGATIVE); Barbiturate Scree,Urine NEGATIVE (NEGATIVE); Benzodiazephine Screen, Urine POSITIVE (NEGATIVE); Cannabinoid Screen, Urine NEGATIVE (NEGATIVE); Cocaine Screen, Urine NEGATIVE (NEGATIVE); Opiate Scree,Urine NEGATIVE (NEGATIVE); Phencyclidine Screen, Urine NEGATIVE (NEGATIVE)
[2019-07-25] MEDS ORDERED: ALBUMIN 5% 250 ML IV ONE ×2 (20:30→20:36)
[2019-07-25] MEDS: fentaNYL Drip 2500mCg/250mlNS 250 ML IV SCH (21:20)
[2019-07-25] MEDS ORDERED: OSELTAMIVIR 30 MG CAP PO SCH (22:00)
[2019-07-25] MEDS: ATORVASTATIN 20 MG TAB PO SCH (22:05)
[2019-07-26] VITALS (101 sets, daily range): BP systolic 88–130; BP diastolic 37–73
[2019-07-26] MEDS: IPRATROPIUM BROM 0.5 MG/2.5ML INH SOL NEB SCH ×4 (00:30→18:21)
[2019-07-26] MEDS: ALBUTEROL SULF 2.5 MG/0.5ML(0.5%) NEB SOLN NEB SCH ×4 (00:30→18:21)
[2019-07-26] MEDS: MIDAZOLAM DRIP 50 mg/50mL 50 ML IV SCH ×4 (03:58→19:08)
[2019-07-26 04:13] LABS: Basophils # (auto) 0 uL; Basophils % (auto) 0.1 % (0.0-2.0); Eosinophils # (auto) 0 uL; Hematocrit 29.9 % (36.0-46.0); Hemoglobin 10.1 g/dL (12.2-16.2); Lymphocytes # (auto) 0.5 uL; Lymphocytes % (auto) 6.3 % (10.0-50.0); Mean Corpuscular Hemoglobin 29.6 pg (28.0-32.0); Mean Corpuscular Hgb Conc. 33.9 g/dL (32.0-36.0); Mean Corpuscular Volume 87.4 fL (80.0-100.0); Monocytes # (auto) 0.7 uL; Monocytes % (auto) 9.2 % (0.0-12.0); Neutrophils # (auto) 6.1 uL; Neutrophils % (auto) 84.4 % (37.0-80.0); Platelet Count (auto) 172 10^3/uL (140-450); Red Blood Cells 3.42 10^6/uL (4.0-5.20); Red Cell Distribution Width 12.5 % (11.8-14.3); White Blood Cell 7.2 10^3/uL (4.4-10.8)
[2019-07-26 04:25] LABS: Potassium 3.5 mmol/L (3.5-5.1)
[2019-07-26 04:31] LABS: Albumin 2.9 g/dL (3.4-5.0); BUN/Creatinine Ratio 14.8; Bilirubin, Total 0.2 mg/dL (0.2-1.0); Calcium 7.4 mg/dL (8.5-10.1); Total Protein 5.9 g/dL (6.4-8.2)
[2019-07-26] MEDS: InsuLIN REG 1unit/0.01ml Soln (100units/ml) SC SCH ×5 (06:00→23:40)
[2019-07-26] MEDS: ACCU-CHEK COMFORT CURVE STRIP VI SCH ×5 (06:09→23:41)
[2019-07-26] MEDS: SODIUM CHLORIDE 0.9% 1,000 ML IV SCH ×2 (07:39→21:18)
[2019-07-26 08:52] LABS: Magnesium 2.1 mg/dL (1.6-2.6); Phosphorus 4.7 mg/dL (2.5-4.90)
[2019-07-26] MEDS: ENOXAPARIN SOD 40 MG/0.4 ML SYRINGE SC SCH (09:36)
[2019-07-26] MEDS: DOXYCYCLINE 100MG/250ML 250 ML IV SCH ×2 (09:36→21:56)
[2019-07-26] MEDS ORDERED: cefTRIAXone 1GM/50ML D5W 50 ML IV ONE (11:15)
[2019-07-26] MEDS: fentaNYL Drip 2500mCg/250mlNS 250 ML IV SCH (21:06)
[2019-07-26] MEDS: ATORVASTATIN 20 MG TAB PO SCH (21:56)
[2019-07-27] VITALS (105 sets, daily range): BP systolic 97–149; BP diastolic 40–76
[2019-07-27] MEDS: MIDAZOLAM DRIP 50 mg/50mL 50 ML IV SCH ×5 (00:14→14:52)
[2019-07-27] MEDS: IPRATROPIUM BROM 0.5 MG/2.5ML INH SOL NEB SCH ×4 (00:18→18:13)
[2019-07-27] MEDS: ALBUTEROL SULF 2.5 MG/0.5ML(0.5%) NEB SOLN NEB SCH ×4 (00:19→18:13)
[2019-07-27] MEDS: fentaNYL Drip 2500mCg/250mlNS 250 ML IV SCH ×2 (04:09→21:15)
[2019-07-27 04:26] LABS: Basophils # (auto) 0 uL; Basophils % (auto) 0.3 % (0.0-2.0); Eosinophils # (auto) 0 uL; Eosinophils % (auto) 0.2 % (0.0-7.0); Hematocrit 27.5 % (36.0-46.0); Hemoglobin 9.4 g/dL (12.2-16.2); Lymphocytes # (auto) 0.8 uL; Lymphocytes % (auto) 16.4 % (10.0-50.0); Mean Corpuscular Hemoglobin 29.9 pg (28.0-32.0); Mean Corpuscular Hgb Conc. 34.3 g/dL (32.0-36.0); Mean Corpuscular Volume 87.4 fL (80.0-100.0); Monocytes # (auto) 0.5 uL; Monocytes % (auto) 10.3 % (0.0-12.0); Neutrophils # (auto) 3.4 uL; Neutrophils % (auto) 72.8 % (37.0-80.0); Platelet Count (auto) 151 10^3/uL (140-450); Red Blood Cells 3.15 10^6/uL (4.0-5.20); Red Cell Distribution Width 12.8 % (11.8-14.3); White Blood Cell 4.6 10^3/uL (4.4-10.8)
[2019-07-27 04:44] LABS: Albumin 2.5 g/dL (3.4-5.0); BUN/Creatinine Ratio 16.7; Calcium 7.2 mg/dL (8.5-10.1); Potassium 3.3 mmol/L (3.5-5.1)
[2019-07-27 04:47] LABS: Bilirubin, Total 0.2 mg/dL (0.2-1.0); Total Protein 5.3 g/dL (6.4-8.2)
[2019-07-27] MEDS: InsuLIN REG 1unit/0.01ml Soln (100units/ml) SC SCH ×3 (06:00→18:00)
[2019-07-27] MEDS: SODIUM CHLORIDE 0.9% 1,000 ML IV SCH ×2 (06:05→08:37)
[2019-07-27] MEDS: ACCU-CHEK COMFORT CURVE STRIP VI SCH ×3 (06:18→18:37)
[2019-07-27] MEDS: POTASSIUM CHL 20MEQ/100ML 100 ML IV SCH ×3 (08:05→11:05)
[2019-07-27] MEDS: cefTRIAXone 1GM/50ML D5W 50 ML IV SCH (08:37)
[2019-07-27] MEDS: PROPOFOL 100 ML IV SCH (09:00)
[2019-07-27] MEDS: PANTOPRAZOLE 40 MG/10 ML VIAL INJ IV SCH (09:35)
[2019-07-27] MEDS: ENOXAPARIN SOD 40 MG/0.4 ML SYRINGE SC SCH (09:35)
[2019-07-27] MEDS: DOXYCYCLINE 100MG/250ML 250 ML IV SCH ×2 (09:36→21:49)
[2019-07-27] MEDS: MUPIROCIN 2% OINT 15gm or 22gm EACHNOSTRI SCH (21:49)
[2019-07-27] MEDS: ATORVASTATIN 20 MG TAB PO SCH (21:50)
[2019-07-28] VITALS (83 sets, daily range): BP systolic 90–198; BP diastolic 47–79
[2019-07-28] MEDS: ACCU-CHEK COMFORT CURVE STRIP VI SCH ×4 (00:18→17:31)
[2019-07-28] MEDS: IPRATROPIUM BROM 0.5 MG/2.5ML INH SOL NEB SCH ×4 (00:36→18:41)
[2019-07-28] MEDS: ALBUTEROL SULF 2.5 MG/0.5ML(0.5%) NEB SOLN NEB SCH ×4 (00:36→18:41)
[2019-07-28] MEDS: MIDAZOLAM DRIP 50 mg/50mL 50 ML IV SCH ×2 (01:38→11:45)
[2019-07-28] MEDS: SODIUM CHLORIDE 0.9% 1,000 ML IV SCH ×2 (01:39→12:06)
[2019-07-28 04:33] LABS: Basophils # (auto) 0 uL; Basophils % (auto) 0.4 % (0.0-2.0); Eosinophils # (auto) 0 uL; Eosinophils % (auto) 0.1 % (0.0-7.0); Hematocrit 29.2 % (36.0-46.0); Hemoglobin 9.9 g/dL (12.2-16.2); Lymphocytes # (auto) 0.8 uL; Lymphocytes % (auto) 16.6 % (10.0-50.0); Mean Corpuscular Hemoglobin 30.1 pg (28.0-32.0); Mean Corpuscular Volume 88.5 fL (80.0-100.0); Monocytes # (auto) 0.7 uL; Monocytes % (auto) 13.9 % (0.0-12.0); Neutrophils # (auto) 3.4 uL; Nucleated Red Blood Cells % 0.1 %; Platelet Count (auto) 151 10^3/uL (140-450); Red Cell Distribution Width 12.7 % (11.8-14.3); White Blood Cell 4.9 10^3/uL (4.4-10.8)
[2019-07-28 04:40] LABS: BUN/Creatinine Ratio 16.9; Calcium 7.4 mg/dL (8.5-10.1); Potassium 4.5 mmol/L (3.5-5.1)
[2019-07-28] MEDS: InsuLIN REG 1unit/0.01ml Soln (100units/ml) SC SCH ×4 (05:53→17:31)
[2019-07-28] MEDS: cefTRIAXone 1GM/50ML D5W 50 ML IV SCH (08:47)
[2019-07-28] MEDS: fentaNYL Drip 2500mCg/250mlNS 250 ML IV SCH (08:51)
[2019-07-28] MEDS: PROPOFOL 100 ML IV SCH (08:58)
[2019-07-28] MEDS: PANTOPRAZOLE 40 MG/10 ML VIAL INJ IV SCH (09:57)
[2019-07-28] MEDS: ENOXAPARIN SOD 40 MG/0.4 ML SYRINGE SC SCH (09:57)
[2019-07-28] MEDS: DOXYCYCLINE 100MG/250ML 250 ML IV SCH ×2 (09:57→21:43)
[2019-07-28] MEDS: MUPIROCIN 2% OINT 15gm or 22gm EACHNOSTRI SCH ×2 (09:58→21:43)
[2019-07-28] MEDS ORDERED: ENOXAPARIN SOD 30 MG/0.3 ML SYRINGE SC SCH (10:00)
[2019-07-28] MEDS ORDERED: HYDR12.56 PO (15:24)
[2019-07-28] MEDS ORDERED: AMLO5TAB15 PO (15:24)
[2019-07-28] MEDS ORDERED: amLODIPine BESYLATE 5 MG TAB PO ONE (15:30)
[2019-07-28] MEDS: DexMEDEtomidine 400 MCG in D5W 5% 96 ML IV SCH (16:02)
[2019-07-28] MEDS ORDERED: Glucerna 1.2 Cal 1Liter BOTTLE GT SCH (16:15)
[2019-07-28] MEDS: ATORVASTATIN 20 MG TAB PO SCH (21:43)
[2019-07-29] VITALS (89 sets, daily range): BP systolic 104–172; BP diastolic 52–82
[2019-07-29] MEDS: ACCU-CHEK COMFORT CURVE STRIP VI SCH ×4 (00:04→18:22)
[2019-07-29] MEDS: MIDAZOLAM DRIP 50 mg/50mL 50 ML IV SCH (00:05)
[2019-07-29] MEDS: ALBUTEROL SULF 2.5 MG/0.5ML(0.5%) NEB SOLN NEB SCH ×4 (00:06→18:52)
[2019-07-29] MEDS: IPRATROPIUM BROM 0.5 MG/2.5ML INH SOL NEB SCH ×4 (00:06→18:53)
[2019-07-29] MEDS: DexMEDEtomidine 400 MCG in D5W 5% 96 ML IV SCH (03:43)
[2019-07-29 04:02] LABS: Basophils # (auto) 0 uL; Basophils % (auto) 0.4 % (0.0-2.0); Eosinophils # (auto) 0 uL; Eosinophils % (auto) 0.1 % (0.0-7.0); Hematocrit 25.6 % (36.0-46.0); Hemoglobin 8.5 g/dL (12.2-16.2); Lymphocytes # (auto) 0.7 uL; Mean Corpuscular Hemoglobin 29.5 pg (28.0-32.0); Mean Corpuscular Hgb Conc. 33.2 g/dL (32.0-36.0); Mean Corpuscular Volume 88.8 fL (80.0-100.0); Monocytes # (auto) 0.4 uL; Monocytes % (auto) 11.1 % (0.0-12.0); Neutrophils # (auto) 2.2 uL; Neutrophils % (auto) 66.4 % (37.0-80.0); Platelet Count (auto) 140 10^3/uL (140-450); Red Blood Cells 2.88 10^6/uL (4.0-5.20); Red Cell Distribution Width 12.7 % (11.8-14.3); White Blood Cell 3.3 10^3/uL (4.4-10.8)
[2019-07-29 04:28] LABS: Potassium 4.3 mmol/L (3.5-5.1)
[2019-07-29 04:36] LABS: Albumin 2.2 g/dL (3.4-5.0); BUN/Creatinine Ratio 19.7; Bilirubin, Total 0.2 mg/dL (0.2-1.0); Calcium 7.6 mg/dL (8.5-10.1); Magnesium 2.2 mg/dL (1.6-2.6)
[2019-07-29] MEDS: InsuLIN REG 1unit/0.01ml Soln (100units/ml) SC SCH ×4 (06:00→18:00)
[2019-07-29] MEDS: PROPOFOL 100 ML IV SCH (08:58)
[2019-07-29] MEDS: cefTRIAXone 1GM/50ML D5W 50 ML IV SCH (10:40)
[2019-07-29] MEDS: DOXYCYCLINE 100MG/250ML 250 ML IV SCH ×2 (10:40→22:00)
[2019-07-29] MEDS: PANTOPRAZOLE 40 MG/10 ML VIAL INJ IV SCH ×2 (10:40→22:00)
[2019-07-29] MEDS: ENOXAPARIN SOD 40 MG/0.4 ML SYRINGE SC SCH (10:40)
[2019-07-29] MEDS: amLODIPine BESYLATE 5 MG TAB PO SCH (10:41)
[2019-07-29] MEDS: MUPIROCIN 2% OINT 15gm or 22gm EACHNOSTRI SCH ×2 (10:41→22:00)
[2019-07-29] MEDS: ATORVASTATIN 20 MG TAB PO SCH (22:00)
[2019-07-30] VITALS (101 sets, daily range): BP systolic 104–189; BP diastolic 54–95
[2019-07-30] MEDS: ACCU-CHEK COMFORT CURVE STRIP VI SCH ×4 (00:01→18:00)
[2019-07-30] MEDS: InsuLIN REG 1unit/0.01ml Soln (100units/ml) SC SCH ×4 (00:02→18:00)
[2019-07-30] MEDS: IPRATROPIUM BROM 0.5 MG/2.5ML INH SOL NEB SCH ×4 (00:22→19:05)
[2019-07-30] MEDS: ALBUTEROL SULF 2.5 MG/0.5ML(0.5%) NEB SOLN NEB SCH ×4 (00:22→19:06)
[2019-07-30] MEDS: DexMEDEtomidine 400 MCG in D5W 5% 96 ML IV SCH (01:31)
[2019-07-30 04:54] LABS: Basophils # (auto) 0 uL; Basophils % (auto) 0.2 % (0.0-2.0); Eosinophils # (auto) 0 uL; Eosinophils % (auto) 0.1 % (0.0-7.0); Hemoglobin 9.1 g/dL (12.2-16.2); Lymphocytes # (auto) 0.8 uL; Lymphocytes % (auto) 24.5 % (10.0-50.0); Mean Corpuscular Hemoglobin 29.6 pg (28.0-32.0); Mean Corpuscular Hgb Conc. 33.6 g/dL (32.0-36.0); Mean Corpuscular Volume 88.2 fL (80.0-100.0); Monocytes # (auto) 0.4 uL; Monocytes % (auto) 12.4 % (0.0-12.0); Neutrophils % (auto) 62.8 % (37.0-80.0); Platelet Count (auto) 140 10^3/uL (140-450); Red Blood Cells 3.07 10^6/uL (4.0-5.20); Red Cell Distribution Width 12.6 % (11.8-14.3); White Blood Cell 3.2 10^3/uL (4.4-10.8)
[2019-07-30 05:15] LABS: Potassium 4.3 mmol/L (3.5-5.1)
[2019-07-30 05:25] LABS: Albumin 2.2 g/dL (3.4-5.0); BUN/Creatinine Ratio 20.1; Bilirubin, Total 0.2 mg/dL (0.2-1.0); Total Protein 5.3 g/dL (6.4-8.2)
[2019-07-30] MEDS: fentaNYL Drip 2500mCg/250mlNS 250 ML IV SCH (08:05)
[2019-07-30] MEDS: MIDAZOLAM DRIP 50 mg/50mL 50 ML IV SCH (08:05)
[2019-07-30] MEDS: PROPOFOL 100 ML IV SCH (08:05)
[2019-07-30] MEDS: cefTRIAXone 1GM/50ML D5W 50 ML IV SCH (09:03)
[2019-07-30] MEDS: DOXYCYCLINE 100MG/250ML 250 ML IV SCH (09:29)
[2019-07-30] MEDS: ENOXAPARIN SOD 40 MG/0.4 ML SYRINGE SC SCH (09:29)
[2019-07-30] MEDS: amLODIPine BESYLATE 5 MG TAB PO SCH (09:29)
[2019-07-30] MEDS: MUPIROCIN 2% OINT 15gm or 22gm EACHNOSTRI SCH ×2 (09:30→22:23)
[2019-07-30] MEDS: PANTOPRAZOLE 40 MG/10 ML VIAL INJ IV SCH ×2 (09:30→22:21)
[2019-07-30] MEDS ORDERED: hydrALAZINE HCL 20 MG/ML VL IV ONE (12:00)
[2019-07-30] MEDS: GABAPENTIN 100 MG CAP PO SCH ×2 (14:00→22:23)
[2019-07-30] MEDS: LABETALOL HCL 200 MG TAB PO SCH (22:23)
[2019-07-30] MEDS: ATORVASTATIN 20 MG TAB PO SCH (22:23)
[2019-07-31] VITALS (103 sets, daily range): BP systolic 95–185; BP diastolic 55–85
[2019-07-31] MEDS: ACCU-CHEK COMFORT CURVE STRIP VI SCH ×4 (00:03→18:03)
[2019-07-31] MEDS: IPRATROPIUM BROM 0.5 MG/2.5ML INH SOL NEB SCH ×4 (00:21→18:19)
[2019-07-31] MEDS: ALBUTEROL SULF 2.5 MG/0.5ML(0.5%) NEB SOLN NEB SCH ×4 (00:21→18:19)
[2019-07-31 03:58] LABS: Basophils # (auto) 0 uL; Basophils % (auto) 0.3 % (0.0-2.0); Eosinophils # (auto) 0 uL; Hematocrit 30.3 % (36.0-46.0); Hemoglobin 10.2 g/dL (12.2-16.2); Lymphocytes # (auto) 0.7 uL; Lymphocytes % (auto) 11.2 % (10.0-50.0); Mean Corpuscular Hemoglobin 29.8 pg (28.0-32.0); Mean Corpuscular Hgb Conc. 33.9 g/dL (32.0-36.0); Mean Corpuscular Volume 87.8 fL (80.0-100.0); Monocytes # (auto) 0.7 uL; Monocytes % (auto) 11.2 % (0.0-12.0); Neutrophils # (auto) 4.9 uL; Neutrophils % (auto) 77.3 % (37.0-80.0); Nucleated Red Blood Cells % 0.1 %; Platelet Count (auto) 173 10^3/uL (140-450); Red Blood Cells 3.44 10^6/uL (4.0-5.20); Red Cell Distribution Width 12.5 % (11.8-14.3); White Blood Cell 6.4 10^3/uL (4.4-10.8)
[2019-07-31 04:13] LABS: BUN/Creatinine Ratio 19.3; Calcium 8.1 mg/dL (8.5-10.1); Potassium 4.1 mmol/L (3.5-5.1)
[2019-07-31] MEDS: InsuLIN REG 1unit/0.01ml Soln (100units/ml) SC SCH ×4 (05:41→18:00)
[2019-07-31] MEDS: GABAPENTIN 100 MG CAP PO SCH ×3 (06:00→22:05)
[2019-07-31] MEDS: PROPOFOL 100 ML IV SCH ×3 (08:58→18:39)
[2019-07-31] MEDS: fentaNYL Drip 2500mCg/250mlNS 250 ML IV SCH ×2 (09:05→10:50)
[2019-07-31] MEDS: DexMEDEtomidine 400 MCG in D5W 5% 96 ML IV SCH (09:05)
[2019-07-31] MEDS: MUPIROCIN 2% OINT 15gm or 22gm EACHNOSTRI SCH ×2 (09:53→22:07)
[2019-07-31] MEDS: PANTOPRAZOLE 40 MG/10 ML VIAL INJ IV SCH ×2 (09:54→22:05)
[2019-07-31] MEDS: LABETALOL HCL 200 MG TAB PO SCH ×2 (09:54→22:06)
[2019-07-31] MEDS: ENOXAPARIN SOD 40 MG/0.4 ML SYRINGE SC SCH (09:55)
[2019-07-31] MEDS: amLODIPine BESYLATE 5 MG TAB PO SCH (09:55)
[2019-07-31] MEDS ORDERED: FUROSEMIDE 40 MG/4 ML VIAL ONE (11:50)
[2019-07-31] MEDS ORDERED: EPINEPHrine HCL 0.5 ML NEB ONE (11:52)
[2019-07-31] MEDS ORDERED: ETOMIDATE (2MG/ML) 20ML VIAL IV ONE ×2 (12:39→15:45)
[2019-07-31] MEDS ORDERED: ROCURONIUM 10MG/ML 10ML VIAL IV ONE ×2 (12:39→15:45)
[2019-07-31] MEDS ORDERED: FUROSEMIDE 40 MG/4 ML VIAL IV SCH (14:00)
[2019-07-31] MEDS ORDERED: EPINEPHrine HCL 0.5 ML NEB NEB ONE (14:15)
[2019-07-31] MEDS: methylPREDNISolone SOD SUCC 125 MG/2 ML VL IV SCH ×2 (15:41→22:06)
[2019-07-31] MEDS: ATORVASTATIN 20 MG TAB PO SCH (22:05)
[2019-08-01] VITALS (105 sets, daily range): BP systolic 106–147; BP diastolic 42–80
[2019-08-01] MEDS: IPRATROPIUM BROM 0.5 MG/2.5ML INH SOL NEB SCH ×4 (00:15→18:35)
[2019-08-01] MEDS: ALBUTEROL SULF 2.5 MG/0.5ML(0.5%) NEB SOLN NEB SCH ×4 (00:15→18:35)
[2019-08-01 04:33] LABS: Basophils # (auto) 0 uL; Basophils % (auto) 0.1 % (0.0-2.0); Eosinophils # (auto) 0 uL; Hematocrit 27.9 % (36.0-46.0); Hemoglobin 9.4 g/dL (12.2-16.2); Lymphocytes # (auto) 0.7 uL; Mean Corpuscular Hgb Conc. 33.6 g/dL (32.0-36.0); Mean Corpuscular Volume 89.3 fL (80.0-100.0); Monocytes # (auto) 0.1 uL; Monocytes % (auto) 2.5 % (0.0-12.0); Neutrophils # (auto) 3.9 uL; Neutrophils % (auto) 83.4 % (37.0-80.0); Nucleated Red Blood Cells % 0.1 %; Platelet Count (auto) 166 10^3/uL (140-450); Red Blood Cells 3.12 10^6/uL (4.0-5.20); Red Cell Distribution Width 12.8 % (11.8-14.3); White Blood Cell 4.7 10^3/uL (4.4-10.8)
[2019-08-01 04:46] LABS: Calcium 8.5 mg/dL (8.5-10.1); Potassium 4.2 mmol/L (3.5-5.1)
[2019-08-01 04:49] LABS: BUN/Creatinine Ratio 23.8
[2019-08-01] MEDS: ACCU-CHEK COMFORT CURVE STRIP VI SCH ×4 (05:31→18:00)
[2019-08-01] MEDS: InsuLIN REG 1unit/0.01ml Soln (100units/ml) SC SCH ×4 (05:31→18:00)
[2019-08-01] MEDS: methylPREDNISolone SOD SUCC 125 MG/2 ML VL IV SCH ×3 (05:31→21:57)
[2019-08-01] MEDS: GABAPENTIN 100 MG CAP PO SCH ×3 (05:31→21:58)
[2019-08-01] MEDS: PROPOFOL 100 ML IV SCH (09:07)
[2019-08-01] MEDS: MUPIROCIN 2% OINT 15gm or 22gm EACHNOSTRI SCH (10:10)
[2019-08-01] MEDS: PANTOPRAZOLE 40 MG/10 ML VIAL INJ IV SCH ×2 (10:12→21:57)
[2019-08-01] MEDS: LABETALOL HCL 200 MG TAB PO SCH ×2 (10:14→21:58)
[2019-08-01] MEDS: amLODIPine BESYLATE 5 MG TAB PO SCH (10:15)
[2019-08-01] MEDS: ENOXAPARIN SOD 40 MG/0.4 ML SYRINGE SC SCH (10:15)
[2019-08-01] MEDS: fentaNYL Drip 2500mCg/250mlNS 250 ML IV SCH (21:06)
[2019-08-01] MEDS: ATORVASTATIN 20 MG TAB PO SCH (21:57)
[2019-08-02] VITALS (105 sets, daily range): BP systolic 106–187; BP diastolic 47–87
[2019-08-02] MEDS: ALBUTEROL SULF 2.5 MG/0.5ML(0.5%) NEB SOLN NEB SCH ×4 (00:04→18:25)
[2019-08-02] MEDS: IPRATROPIUM BROM 0.5 MG/2.5ML INH SOL NEB SCH ×4 (00:04→18:25)
[2019-08-02] MEDS: InsuLIN REG 1unit/0.01ml Soln (100units/ml) SC SCH ×4 (00:09→18:00)
[2019-08-02] MEDS: ACCU-CHEK COMFORT CURVE STRIP VI SCH ×4 (00:09→18:20)
[2019-08-02] MEDS: GABAPENTIN 100 MG CAP PO SCH ×3 (05:16→22:02)
[2019-08-02] MEDS: methylPREDNISolone SOD SUCC 125 MG/2 ML VL IV SCH ×3 (05:16→22:03)
[2019-08-02] MEDS: PROPOFOL 100 ML IV SCH (08:58)
[2019-08-02] MEDS: amLODIPine BESYLATE 5 MG TAB PO SCH (09:55)
[2019-08-02] MEDS: PANTOPRAZOLE 40 MG/10 ML VIAL INJ IV SCH ×2 (09:55→22:02)
[2019-08-02] MEDS: ENOXAPARIN SOD 40 MG/0.4 ML SYRINGE SC SCH (09:56)
[2019-08-02] MEDS: LABETALOL HCL 200 MG TAB PO SCH ×2 (09:56→22:02)
[2019-08-02] MEDS ORDERED: METOPROLOL TARTRATE 1MG/1ML-5ML VIAL IV PRN (13:45)
[2019-08-02] MEDS ORDERED: METOPROLOL TARTRATE 1MG/1ML-5ML VIAL IV ONE (13:52)
[2019-08-02] MEDS: fentaNYL Drip 2500mCg/250mlNS 250 ML IV SCH (21:06)
[2019-08-02] MEDS: ATORVASTATIN 20 MG TAB PO SCH (22:02)
[2019-08-03] VITALS (102 sets, daily range): BP systolic 113–177; BP diastolic 49–119
[2019-08-03] MEDS: InsuLIN REG 1unit/0.01ml Soln (100units/ml) SC SCH ×5 (00:01→23:55)
[2019-08-03 04:42] LABS: Basophils # (auto) 0 uL; Basophils % (auto) 0.1 % (0.0-2.0); Eosinophils # (auto) 0 uL; Hematocrit 29.4 % (36.0-46.0); Hemoglobin 9.9 g/dL (12.2-16.2); Lymphocytes # (auto) 0.4 uL; Lymphocytes % (auto) 7.8 % (10.0-50.0); Mean Corpuscular Hemoglobin 29.5 pg (28.0-32.0); Mean Corpuscular Hgb Conc. 33.7 g/dL (32.0-36.0); Mean Corpuscular Volume 87.7 fL (80.0-100.0); Monocytes # (auto) 0.2 uL; Neutrophils # (auto) 5.1 uL; Neutrophils % (auto) 88.1 % (37.0-80.0); Nucleated Red Blood Cells % 0.1 %; Platelet Count (auto) 207 10^3/uL (140-450); Red Blood Cells 3.36 10^6/uL (4.0-5.20); Red Cell Distribution Width 12.7 % (11.8-14.3); White Blood Cell 5.7 10^3/uL (4.4-10.8)
[2019-08-03 04:55] LABS: Potassium 3.7 mmol/L (3.5-5.1)
[2019-08-03 05:00] LABS: Albumin 2.8 g/dL (3.4-5.0); BUN/Creatinine Ratio 29.7; Calcium 8.2 mg/dL (8.5-10.1)
[2019-08-03 05:03] LABS: Bilirubin, Total 0.4 mg/dL (0.2-1.0); Total Protein 6.2 g/dL (6.4-8.2)
[2019-08-03] MEDS: GABAPENTIN 100 MG CAP PO SCH ×3 (06:07→21:52)
[2019-08-03] MEDS: ACCU-CHEK COMFORT CURVE STRIP VI SCH ×5 (06:08→23:55)
[2019-08-03] MEDS: methylPREDNISolone SOD SUCC 125 MG/2 ML VL IV SCH ×3 (06:08→21:51)
[2019-08-03] MEDS: ALBUTEROL SULF 2.5 MG/0.5ML(0.5%) NEB SOLN NEB SCH ×3 (06:30→18:54)
[2019-08-03] MEDS: IPRATROPIUM BROM 0.5 MG/2.5ML INH SOL NEB SCH ×3 (06:30→18:54)
[2019-08-03] MEDS: PROPOFOL 100 ML IV SCH (08:58)
[2019-08-03] MEDS: PANTOPRAZOLE 40 MG/10 ML VIAL INJ IV SCH ×2 (09:54→21:51)
[2019-08-03] MEDS: ENOXAPARIN SOD 40 MG/0.4 ML SYRINGE SC SCH (09:54)
[2019-08-03] MEDS: LABETALOL HCL 200 MG TAB PO SCH ×2 (09:55→21:52)
[2019-08-03] MEDS: amLODIPine BESYLATE 5 MG TAB PO SCH (09:56)
[2019-08-03] MEDS ORDERED: D5W 5% 1,000 ML IV ONE (16:30)
[2019-08-03] MEDS: fentaNYL Drip 2500mCg/250mlNS 250 ML IV SCH (21:06)
[2019-08-03] MEDS: ATORVASTATIN 20 MG TAB PO SCH (21:52)
[2019-08-04] VITALS (90 sets, daily range): BP systolic 120–162; BP diastolic 44–67
[2019-08-04] MEDS: ALBUTEROL SULF 2.5 MG/0.5ML(0.5%) NEB SOLN NEB SCH ×4 (00:15→18:36)
[2019-08-04] MEDS: IPRATROPIUM BROM 0.5 MG/2.5ML INH SOL NEB SCH ×4 (00:15→18:36)
[2019-08-04 04:30] LABS: Basophils # (auto) 0 uL; Basophils % (auto) 0.1 % (0.0-2.0); Eosinophils # (auto) 0 uL; Hematocrit 26.9 % (36.0-46.0); Lymphocytes # (auto) 0.3 uL; Lymphocytes % (auto) 8.7 % (10.0-50.0); Mean Corpuscular Hemoglobin 29.3 pg (28.0-32.0); Mean Corpuscular Hgb Conc. 33.5 g/dL (32.0-36.0); Mean Corpuscular Volume 87.6 fL (80.0-100.0); Monocytes # (auto) 0.2 uL; Monocytes % (auto) 4.8 % (0.0-12.0); Neutrophils # (auto) 3.5 uL; Neutrophils % (auto) 86.4 % (37.0-80.0); Nucleated Red Blood Cells % 0.1 %; Platelet Count (auto) 174 10^3/uL (140-450); Red Blood Cells 3.07 10^6/uL (4.0-5.20); Red Cell Distribution Width 12.8 % (11.8-14.3)
[2019-08-04 04:50] LABS: BUN/Creatinine Ratio 32.9; Calcium 8.1 mg/dL (8.5-10.1); Potassium 3.8 mmol/L (3.5-5.1)
[2019-08-04] MEDS: methylPREDNISolone SOD SUCC 125 MG/2 ML VL IV SCH ×3 (05:32→20:00)
[2019-08-04] MEDS: GABAPENTIN 100 MG CAP PO SCH ×4 (05:32→20:08)
[2019-08-04] MEDS: ACCU-CHEK COMFORT CURVE STRIP VI SCH ×4 (06:03→22:30)
[2019-08-04] MEDS: InsuLIN REG 1unit/0.01ml Soln (100units/ml) SC SCH ×4 (06:03→22:26)
[2019-08-04] MEDS: fentaNYL Drip 2500mCg/250mlNS 250 ML IV SCH (06:46)
[2019-08-04] MEDS: PROPOFOL 100 ML IV SCH (07:58)
[2019-08-04] MEDS: ENOXAPARIN SOD 40 MG/0.4 ML SYRINGE SC SCH (09:56)
[2019-08-04] MEDS: PANTOPRAZOLE 40 MG/10 ML VIAL INJ IV SCH ×2 (09:56→20:00)
[2019-08-04] MEDS: LABETALOL HCL 200 MG TAB PO SCH ×2 (09:56→20:00)
[2019-08-04] MEDS: amLODIPine BESYLATE 5 MG TAB PO SCH (09:57)
[2019-08-04] MEDS ORDERED: D5W 5% 1,000 ML IV ONE (11:45)
[2019-08-04] MEDS: ATORVASTATIN 20 MG TAB PO SCH (20:00)
[2019-08-05] VITALS (85 sets, daily range): BP systolic 127–172; BP diastolic 48–92
[2019-08-05] MEDS: IPRATROPIUM BROM 0.5 MG/2.5ML INH SOL NEB SCH ×4 (00:09→18:38)
[2019-08-05] MEDS: ALBUTEROL SULF 2.5 MG/0.5ML(0.5%) NEB SOLN NEB SCH ×4 (00:09→18:38)
[2019-08-05] MEDS: ACCU-CHEK COMFORT CURVE STRIP VI SCH ×4 (04:05→23:53)
[2019-08-05] MEDS: GABAPENTIN 100 MG CAP PO SCH ×3 (04:18→21:31)
[2019-08-05] MEDS: InsuLIN REG 1unit/0.01ml Soln (100units/ml) SC SCH ×4 (04:18→23:53)
[2019-08-05] MEDS: methylPREDNISolone SOD SUCC 125 MG/2 ML VL IV SCH ×3 (04:19→21:30)
[2019-08-05] MEDS: fentaNYL Drip 2500mCg/250mlNS 250 ML IV SCH (07:48)
[2019-08-05] MEDS: PROPOFOL 100 ML IV SCH (08:58)
[2019-08-05] MEDS: ENOXAPARIN SOD 40 MG/0.4 ML SYRINGE SC SCH (09:42)
[2019-08-05] MEDS: PANTOPRAZOLE 40 MG/10 ML VIAL INJ IV SCH ×2 (09:42→21:30)
[2019-08-05] MEDS: amLODIPine BESYLATE 5 MG TAB PO SCH (09:43)
[2019-08-05] MEDS: LABETALOL HCL 200 MG TAB PO SCH ×2 (09:44→21:33)
[2019-08-05 14:23] LABS: Basophils # (auto) 0 uL; Basophils % (auto) 0.3 % (0.0-2.0); Eosinophils # (auto) 0 uL; Hematocrit 28.2 % (36.0-46.0); Hemoglobin 9.5 g/dL (12.2-16.2); Lymphocytes # (auto) 0.6 uL; Lymphocytes % (auto) 8.2 % (10.0-50.0); Mean Corpuscular Hemoglobin 29.6 pg (28.0-32.0); Mean Corpuscular Hgb Conc. 33.6 g/dL (32.0-36.0); Mean Corpuscular Volume 88.2 fL (80.0-100.0); Monocytes # (auto) 0.4 uL; Monocytes % (auto) 6.2 % (0.0-12.0); Neutrophils # (auto) 5.8 uL; Neutrophils % (auto) 85.3 % (37.0-80.0); Nucleated Red Blood Cells % 0.1 %; Platelet Count (auto) 183 10^3/uL (140-450); Red Cell Distribution Width 13.1 % (11.8-14.3); White Blood Cell 6.8 10^3/uL (4.4-10.8)
[2019-08-05 14:46] LABS: BUN/Creatinine Ratio 32.4; Calcium 8.1 mg/dL (8.5-10.1); Potassium 3.9 mmol/L (3.5-5.1)
[2019-08-05] MEDS: ATORVASTATIN 20 MG TAB PO SCH (21:30)
[2019-08-06] VITALS (69 sets, daily range): BP systolic 96–185; BP diastolic 28–80
[2019-08-06] MEDS: ALBUTEROL SULF 2.5 MG/0.5ML(0.5%) NEB SOLN NEB SCH ×5 (00:15→18:31)
[2019-08-06] MEDS: IPRATROPIUM BROM 0.5 MG/2.5ML INH SOL NEB SCH ×5 (00:15→18:31)
[2019-08-06 04:33] LABS: Basophils # (auto) 0 uL; Eosinophils # (auto) 0 uL; Hematocrit 29.4 % (36.0-46.0); Hemoglobin 9.9 g/dL (12.2-16.2); Lymphocytes # (auto) 0.5 uL; Lymphocytes % (auto) 7.3 % (10.0-50.0); Mean Corpuscular Hemoglobin 29.7 pg (28.0-32.0); Mean Corpuscular Hgb Conc. 33.6 g/dL (32.0-36.0); Mean Corpuscular Volume 88.5 fL (80.0-100.0); Monocytes # (auto) 0.1 uL; Monocytes % (auto) 2.4 % (0.0-12.0); Neutrophils # (auto) 5.6 uL; Neutrophils % (auto) 90.3 % (37.0-80.0); Platelet Count (auto) 187 10^3/uL (140-450); Red Blood Cells 3.32 10^6/uL (4.0-5.20); White Blood Cell 6.3 10^3/uL (4.4-10.8)
[2019-08-06 04:56] LABS: Potassium 4.3 mmol/L (3.5-5.1)
[2019-08-06 05:05] LABS: BUN/Creatinine Ratio 28.1; Calcium 8.2 mg/dL (8.5-10.1)
[2019-08-06] MEDS: methylPREDNISolone SOD SUCC 125 MG/2 ML VL IV SCH (06:00)
[2019-08-06] MEDS: ACCU-CHEK COMFORT CURVE STRIP VI SCH ×3 (06:01→18:56)
[2019-08-06] MEDS: GABAPENTIN 100 MG CAP PO SCH ×3 (06:01→21:43)
[2019-08-06] MEDS: InsuLIN REG 1unit/0.01ml Soln (100units/ml) SC SCH ×3 (06:01→18:56)
[2019-08-06] MEDS: PROPOFOL 100 ML IV SCH (08:58)
[2019-08-06] MEDS: PANTOPRAZOLE 40 MG/10 ML VIAL INJ IV SCH ×2 (09:20→21:42)
[2019-08-06] MEDS: ENOXAPARIN SOD 40 MG/0.4 ML SYRINGE SC SCH (09:20)
[2019-08-06] MEDS: LABETALOL HCL 200 MG TAB PO SCH ×2 (09:21→21:43)
[2019-08-06] MEDS: amLODIPine BESYLATE 5 MG TAB PO SCH (09:21)
[2019-08-06] MEDS: D5W/SOD CHL 0.45% 1,000 ML IV SCH ×2 (09:30→22:05)
[2019-08-06] MEDS ORDERED: BUMETANIDE INJECTION 10 ML ONE (12:44)
[2019-08-06] MEDS ORDERED: BUMETANIDE 2.5mg/10ml (0.25 mg/ml) INJ IV ONE ×2 (12:45→15:30)
[2019-08-06] MEDS ORDERED: methylPREDNISolone SOD SUCC 125 MG/2 ML VL IV SCH (14:00)
[2019-08-06] MEDS: hydrALAZINE HCL 20 MG/ML VL IV PRN (15:13)
[2019-08-06] MEDS: ATORVASTATIN 20 MG TAB PO SCH (21:43)
[2019-08-07] VITALS (14 sets, daily range): BP systolic 102–174; BP diastolic 47–94
[2019-08-07] MEDS: ALBUTEROL SULF 2.5 MG/0.5ML(0.5%) NEB SOLN NEB SCH ×5 (00:03→23:54)
[2019-08-07] MEDS: IPRATROPIUM BROM 0.5 MG/2.5ML INH SOL NEB SCH ×5 (00:03→23:54)
[2019-08-07] MEDS: D5W/SOD CHL 0.45% 1,000 ML IV SCH (01:46)
[2019-08-07 03:42] LABS: Basophils # (auto) 0 uL; Basophils % (auto) 0.1 % (0.0-2.0); Eosinophils # (auto) 0 uL; Hematocrit 32.8 % (36.0-46.0); Lymphocytes # (auto) 0.9 uL; Lymphocytes % (auto) 9.7 % (10.0-50.0); Mean Corpuscular Hemoglobin 29.3 pg (28.0-32.0); Mean Corpuscular Hgb Conc. 33.5 g/dL (32.0-36.0); Mean Corpuscular Volume 87.5 fL (80.0-100.0); Monocytes # (auto) 0.6 uL; Monocytes % (auto) 5.7 % (0.0-12.0); Neutrophils # (auto) 8.2 uL; Neutrophils % (auto) 84.5 % (37.0-80.0); Platelet Count (auto) 209 10^3/uL (140-450); Red Blood Cells 3.75 10^6/uL (4.0-5.20); Red Cell Distribution Width 12.8 % (11.8-14.3); White Blood Cell 9.7 10^3/uL (4.4-10.8)
[2019-08-07 04:01] LABS: Calcium 8.4 mg/dL (8.5-10.1); Potassium 3.3 mmol/L (3.5-5.1)
[2019-08-07 04:03] LABS: BUN/Creatinine Ratio 27.3; Magnesium 2.6 mg/dL (1.6-2.6)
[2019-08-07] MEDS: hydrALAZINE HCL 20 MG/ML VL IV PRN (04:06)
[2019-08-07] MEDS ORDERED: POTASSIUM CHL 20MEQ/100ML 100 ML IV ONE (05:00)
[2019-08-07] MEDS ORDERED: LORazepam 2MG/ML-1ML VIAL IV ONE (05:00)
[2019-08-07] MEDS: GABAPENTIN 100 MG CAP PO SCH (05:40)
[2019-08-07] MEDS: InsuLIN REG 1unit/0.01ml Soln (100units/ml) SC SCH ×4 (06:28→17:19)
[2019-08-07] MEDS: ACCU-CHEK COMFORT CURVE STRIP VI SCH ×4 (06:28→17:18)
[2019-08-07] MEDS: PROPOFOL 100 ML IV SCH (08:58)
[2019-08-07] MEDS: PANTOPRAZOLE 40 MG/10 ML VIAL INJ IV SCH ×2 (09:34→22:19)
[2019-08-07] MEDS: LABETALOL HCL 200 MG TAB PO SCH ×2 (09:34→22:20)
[2019-08-07] MEDS: ENOXAPARIN SOD 40 MG/0.4 ML SYRINGE SC SCH (09:34)
[2019-08-07] MEDS: amLODIPine BESYLATE 5 MG TAB PO SCH (09:36)
[2019-08-07] MEDS ORDERED: D5W 5% 1,000 ML IV SCH (10:15)
[2019-08-07] MEDS: POTASSIUM CHL 20MEQ/100ML 100 ML IV SCH ×2 (11:31→13:44)
[2019-08-07] MEDS ORDERED: ONDANSETRON HCL 4 MG/2 ML VIAL IV PRN (18:00)
[2019-08-07] MEDS ORDERED: GABAPENTIN 300 MG CAP PO SCH (22:00)
[2019-08-07] MEDS: ATORVASTATIN 20 MG TAB PO SCH (22:20)
[2019-08-07] MEDS: LORazepam 2MG/ML-1ML VIAL IV PRN (22:28)
[2019-08-08] VITALS (10 sets, daily range): BP systolic 87–151; BP diastolic 41–82
[2019-08-08] MEDS: ACCU-CHEK COMFORT CURVE STRIP VI SCH ×4 (00:14→17:53)
[2019-08-08] MEDS: InsuLIN REG 1unit/0.01ml Soln (100units/ml) SC SCH ×4 (00:17→17:48)
[2019-08-08 05:53] LABS: Potassium 4.5 mmol/L (3.5-5.1)
[2019-08-08 06:00] LABS: BUN/Creatinine Ratio 24.4
[2019-08-08] MEDS: IPRATROPIUM BROM 0.5 MG/2.5ML INH SOL NEB SCH ×3 (07:51→19:00)
[2019-08-08] MEDS: ALBUTEROL SULF 2.5 MG/0.5ML(0.5%) NEB SOLN NEB SCH ×3 (07:51→19:00)
[2019-08-08] MEDS: GABAPENTIN 300 MG CAP PO SCH ×3 (08:47→21:05)
[2019-08-08] MEDS: PANTOPRAZOLE 40 MG/10 ML VIAL INJ IV SCH ×2 (10:08→21:04)
[2019-08-08] MEDS: ENOXAPARIN SOD 40 MG/0.4 ML SYRINGE SC SCH (10:08)
[2019-08-08] MEDS: LABETALOL HCL 200 MG TAB PO SCH (10:09)
[2019-08-08] MEDS: amLODIPine BESYLATE 5 MG TAB PO SCH (10:09)
[2019-08-08] MEDS ORDERED: POLYETHYLENE GLYCOL 17 GM PWDR PO ONE (11:00)
[2019-08-08] MEDS ORDERED: SODIUM CHLORIDE 0.9% 500 ML IV ONE (16:30)
[2019-08-08] MEDS: ATORVASTATIN 20 MG TAB PO SCH (21:05)
[2019-08-08] MEDS: POLYETHYLENE GLYCOL 17 GM PWDR PO SCH (21:05)
[2019-08-09] VITALS: BP 127/51
[2019-08-09] MEDS: ACCU-CHEK COMFORT CURVE STRIP VI SCH ×4 (00:22→18:02)
[2019-08-09] MEDS: InsuLIN REG 1unit/0.01ml Soln (100units/ml) SC SCH ×4 (00:26→18:02)
[2019-08-09] MEDS: IPRATROPIUM BROM 0.5 MG/2.5ML INH SOL NEB SCH ×4 (00:53→18:18)
[2019-08-09] MEDS: ALBUTEROL SULF 2.5 MG/0.5ML(0.5%) NEB SOLN NEB SCH ×4 (00:53→18:18)
[2019-08-09 04:00] VITALS: BP 118/54
[2019-08-09] MEDS: GABAPENTIN 300 MG CAP PO SCH ×3 (05:47→22:49)
[2019-08-09] MEDS: ACETAMINOPHEN 650 mg PER 20 mL UD GT PRN ×2 (05:48→12:43)
[2019-08-09 06:24] LABS: Potassium 4.4 mmol/L (3.5-5.1)
[2019-08-09 06:36] LABS: Albumin 2.3 g/dL (3.4-5.0); Bilirubin, Total 0.4 mg/dL (0.2-1.0); Calcium 7.5 mg/dL (8.5-10.1)
[2019-08-09 07:50] VITALS: BP 133/66
[2019-08-09] MEDS: PANTOPRAZOLE 40 MG/10 ML VIAL INJ IV SCH ×2 (10:00→22:48)
[2019-08-09] MEDS: POLYETHYLENE GLYCOL 17 GM PWDR PO SCH ×2 (10:02→22:49)
[2019-08-09 10:43] LABS: Basophils # (auto) 0 uL; Basophils % (auto) 0.4 % (0.0-2.0); Eosinophils # (auto) 0.1 uL; Hemoglobin 10.7 g/dL (12.2-16.2); Lymphocytes # (auto) 1.5 uL; Lymphocytes % (auto) 17.4 % (10.0-50.0); Mean Corpuscular Hemoglobin 28.5 pg (28.0-32.0); Mean Corpuscular Hgb Conc. 32.4 g/dL (32.0-36.0); Monocytes # (auto) 0.5 uL; Neutrophils # (auto) 6.4 uL; Neutrophils % (auto) 75.2 % (37.0-80.0); Platelet Count (auto) 213 10^3/uL (140-450); Red Blood Cells 3.75 10^6/uL (4.0-5.20); Red Cell Distribution Width 12.8 % (11.8-14.3); White Blood Cell 8.4 10^3/uL (4.4-10.8)
[2019-08-09 11:55] VITALS: BP 103/59
[2019-08-09 15:40] VITALS: BP 109/57
[2019-08-09] MEDS: LORazepam 2MG/ML-1ML VIAL IV PRN (18:39)
[2019-08-09 21:37] VITALS: BP 129/68
[2019-08-09] MEDS: ATORVASTATIN 20 MG TAB PO SCH (22:49)
[2019-08-10] MEDS: IPRATROPIUM BROM 0.5 MG/2.5ML INH SOL NEB SCH ×3 (00:01→11:54)
[2019-08-10] MEDS: ACCU-CHEK COMFORT CURVE STRIP VI SCH ×3 (00:21→12:42)
[2019-08-10] MEDS: InsuLIN REG 1unit/0.01ml Soln (100units/ml) SC SCH ×3 (00:22→12:42)
[2019-08-10 05:36] VITALS: BP 139/86
[2019-08-10] MEDS: GABAPENTIN 300 MG CAP PO SCH ×2 (06:04→14:35)
[2019-08-10] MEDS: ALBUTEROL SULF 2.5 MG/0.5ML(0.5%) NEB SOLN NEB SCH ×3 (06:51→11:54)
[2019-08-10 07:47] LABS: Basophils # (auto) 0 uL; Basophils % (auto) 0.1 % (0.0-2.0); Eosinophils # (auto) 0.1 uL; Hematocrit 35.6 % (36.0-46.0); Hemoglobin 11.2 g/dL (12.2-16.2); Lymphocytes # (auto) 1.1 uL; Lymphocytes % (auto) 13.4 % (10.0-50.0); Mean Corpuscular Hemoglobin 29.2 pg (28.0-32.0); Mean Corpuscular Hgb Conc. 31.5 g/dL (32.0-36.0); Mean Corpuscular Volume 92.6 fL (80.0-100.0); Monocytes # (auto) 0.6 uL; Monocytes % (auto) 7.4 % (0.0-12.0); Neutrophils # (auto) 6.7 uL; Neutrophils % (auto) 78.1 % (37.0-80.0); Nucleated Red Blood Cells % 0.5 %; Platelet Count (auto) 165 10^3/uL (140-450); Red Blood Cells 3.85 10^6/uL (4.0-5.20); Red Cell Distribution Width 13.5 % (11.8-14.3); White Blood Cell 8.6 10^3/uL (4.4-10.8)
[2019-08-10 08:07] LABS: BUN/Creatinine Ratio 22.5; Calcium 7.6 mg/dL (8.5-10.1); Potassium 4.3 mmol/L (3.5-5.1)
[2019-08-10 08:34] VITALS: BP 127/68
[2019-08-10] MEDS: ACETAMINOPHEN 650 mg PER 20 mL UD GT PRN (09:30)
[2019-08-10] MEDS: PANTOPRAZOLE 40 MG/10 ML VIAL INJ IV SCH (09:30)
[2019-08-10] MEDS: POLYETHYLENE GLYCOL 17 GM PWDR PO SCH (09:32)
[2019-08-10 12:50] VITALS: BP 122/66
== END 2019-08-10 15:30 | DRG 207 ==
LOC: EDUNIT# 07:14 → ER 07:14 → EDBD 07:14 → ICU WEST 10:09 → DOU IN ICU 08-07 11:14 → TELE-EAST 08-09 18:17
PROVIDERS: ADMIT Internal Medicine; ATTEND Family Medicine
PROC: 5A1955Z Respiratory Ventilation, Greater than 96 Consecutive Hours (ICD-10-PCS; principal; 2019-07-31)
PROC: 0BH17EZ Insertion of Endotracheal Airway into Trachea, Via Natural or Artificial Opening (ICD-10-PCS; 2019-07-31)
PROC: 02HV33Z Insertion of Infusion Device into Superior Vena Cava, Percutaneous Approach (ICD-10-PCS; 2019-07-31)
PROC: 5A09357 Assistance with Respiratory Ventilation, Less than 24 Consecutive Hours, Continuous Positive Airway Pressure (ICD-10-PCS; 2019-07-31)
DX: J96.00 Acute respiratory failure, unspecified whether with hypoxia or hypercapnia (principal); G93.41 Metabolic encephalopathy; J18.9 Pneumonia, unspecified organism; E87.0 Hyperosmolality and hypernatremia; E44.0 Moderate protein-calorie malnutrition; N18.4 Chronic kidney disease, stage 4 (severe); I13.0 Hypertensive heart and chronic kidney disease with heart failure and stage 1 through stage 4 chronic kidney disease, or unspecified chronic kidney disease; D63.8 Anemia in other chronic diseases classified elsewhere; J44.9 Chronic obstructive pulmonary disease, unspecified; I25.10 Atherosclerotic heart disease of native coronary artery without angina pectoris; I50.9 Heart failure, unspecified; E11.40 Type 2 diabetes mellitus with diabetic neuropathy, unspecified; E11.65 Type 2 diabetes mellitus with hyperglycemia; N18.3 Chronic kidney disease, stage 3 (moderate); G40.901 Epilepsy, unspecified, not intractable, with status epilepticus; E11.649 Type 2 diabetes mellitus with hypoglycemia without coma; E66.01 Morbid (severe) obesity due to excess calories; E78.5 Hyperlipidemia, unspecified; F41.9 Anxiety disorder, unspecified; F03.90 Unspecified dementia, unspecified severity, without behavioral disturbance, psychotic disturbance, mood disturbance, and anxiety; F32.9 Major depressive disorder, single episode, unspecified; F17.210 Nicotine dependence, cigarettes, uncomplicated; G40.909 Epilepsy, unspecified, not intractable, without status epilepticus; E11.22 Type 2 diabetes mellitus with diabetic chronic kidney disease; Z86.73 Personal history of transient ischemic attack (TIA), and cerebral infarction without residual deficits; Z88.6 Allergy status to analgesic agent; Z88.1 Allergy status to other antibiotic agents; Z90.49 Acquired absence of other specified parts of digestive tract; Z90.710 Acquired absence of both cervix and uterus; Z68.39 Body mass index [BMI] 39.0-39.9, adult; Z79.82 Long term (current) use of aspirin; Z79.899 Other long term (current) drug therapy; Z82.49 Family history of ischemic heart disease and other diseases of the circulatory system; Z83.3 Family history of diabetes mellitus; Z91.14 Patient's other noncompliance with medication regimen
CPT/HCPCS: 31500; 36415; 36556; 36600; 70450; 71045; 80048; 80053; 80185; 80307; 81001; 82805; 82962; 83036; 83605; 83735; 83880; 83930; 84100; 84295; 84484; 85025; 85610; 85730; 87040; 87070; 87081; 87205; 87804; 92610; 94002; 94003; 94640; 94660; 95819; 96361; 96365; 96375; 99291; A4565; C9113; G0378; G9035; J0330; J0696; J1815; J2250; J2405; J2543; J2704; J3480; J3490; J7060

== ENCOUNTER 2021-03-25 10:44 | Inpatient (IN) | payer MEDICARE, MEDICAID ==
[~2021-03-25] VITALS: Ht 162.6 cm; Wt 90.3 kg
[~2021-03-25 10:44] MED LIST changes: +ALPR0.5T7 PO; +AMLO-489 PO; -ASP81EC PO; +ASPI-394 PO; +CLON0.1T PO; +DOCU100T15 PO; +DONE1TAB88 PO; +ESCI-34 PO; +FURO20TA3 PO; +HYDR12.56 PO; +HYDR25TA5 PO; +LACO100T PO; +LACO50TA2 PO; +MEM5T PO; +METF-370 PO; +SITA100T7 PO
[2021-03-25 11:37] LABS: Albumin 3.1 g/dL (3.4-5.0); Anion Gap 5 (5-15); Basophils # (auto) 0 10 ^3/uL (0-0.2); Basophils % (auto) 0.3 % (0.0-2.0); Blood Urea Nitrogen 19 mg/dL (7-18); Calcium 8.3 mg/dL (8.5-10.1); Carbon Dioxide 22 mmol/L (21-32); Chloride 112 mmol/L (98-107); Eosinophils # (auto) 0 10 ^3/uL (0-0.8); Eosinophils % (auto) 0.4 % (0.0-7.0); Glucose 139 mg/dL (74-106); Hematocrit 37.6 % (36.0-46.0); Hemoglobin 11.9 g/dL (12.2-16.2); Lymphocytes # (auto) 1.1 10 ^3/uL (0.4-5.4); Lymphocytes % (auto) 16.7 % (10.0-50.0); Mean Corpuscular Hemoglobin 29.1 pg (28.0-32.0); Mean Corpuscular Hgb Conc. 31.6 g/dL (32.0-36.0); Mean Corpuscular Volume 91.8 fL (80.0-100.0); Monocytes # (auto) 0.3 10 ^3/uL (0-1.3); Monocytes % (auto) 4.6 % (0.0-12.0); Neutrophils # (auto) 5.3 10 ^3/uL (1.6-8.6); Nucleated Red Blood Cells % 0.2 %; Potassium 4.2 mmol/L (3.5-5.1); Red Cell Distribution Width 12.8 % (11.8-14.3); Sodium 139 mmol/L (136-145); White Blood Cell 6.8 10^3/uL (4.4-10.8)
[2021-03-25 11:40] LABS: Alanine Aminotransferase 14 U/L (13-56); Alkaline Phosphatase 119 U/L (45-117); Aspartate Aminotransferase 12 U/L (15-37); BUN/Creatinine Ratio 12.9; Bilirubin, Total 0.3 mg/dL (0.2-1.0); GFR African American 45 mL/min; GFR Non-African American 37 mL/min; Total Protein 6.4 g/dL (6.4-8.2)
[2021-03-25 11:54] LABS: Blood Alcohol < 3.0 mg/dL (0-5)
[2021-03-25] MEDS ORDERED: NITROGLYCERIN 0.4 MG SL TAB SL PRN ×2 (12:45→13:15)
[2021-03-25] MEDS ORDERED: MORPHINE SULFATE INJECTION 2 MG/ML SYRG IV PRN ×2 (12:45→13:15)
[2021-03-25 12:59] LABS: Phenytoin (Dilantin) 1.1 ug/mL (10-20); Valproic Acid (Depakene) < 3.0 ug/mL (50-100)
[2021-03-25] MEDS ORDERED: SITA50TA PO (12:59)
[2021-03-25] MEDS ORDERED: METF-929 PO (13:02)
[2021-03-25] MEDS ORDERED: LEVE750T3 PO (13:04)
[2021-03-25] MEDS ORDERED: LISI-716 PO (13:08)
[2021-03-25] MEDS ORDERED: OXYC325T14 PO (13:13)
[2021-03-25] MEDS ORDERED: LORazepam 0.5 MG TAB PO PRN (13:15)
[2021-03-25] MEDS ORDERED: ONDANSETRON HCL 4 MG/2 ML VIAL IV PRN (13:15)
[2021-03-25] MEDS ORDERED: DOCUSATE SOD 100 MG CAP PO PRN (13:15)
[2021-03-25] MEDS ORDERED: cefTRIAXone 1GM/50ML D5W 50 ML IV ONE (13:15)
[2021-03-25] MEDS ORDERED: IBUP800T26 PO (13:15)
[2021-03-25] MEDS ORDERED: HYDROcodone-ACET 5/325MG TAB PO PRN (13:15)
[2021-03-25] MEDS: SODIUM CHLORIDE 0.9% 1,000 ML IV SCH ×2 (13:15→14:44)
[2021-03-25] MEDS ORDERED: ALUM & MAG HYDROX-SIMETH LIQ(MAALOX) 30 ML PO PRN (13:15)
[2021-03-25] MEDS ORDERED: CLINDAMYCIN 300MG IV 50 ML IV ONE (13:15)
[2021-03-25] MEDS ORDERED: DEXTROSE (50%) 50ML SYRG IV PRN (13:15)
[2021-03-25] MEDS ORDERED: ALBU108A5 INH (13:16)
[2021-03-25] MEDS ORDERED: ATOR40TA52 PO (13:18)
[2021-03-25] MEDS ORDERED: FLUT110A INH (13:18)
[2021-03-25] MEDS ORDERED: LEVE500T3 PO (13:27)
[2021-03-25] MEDS ORDERED: hydrALAZINE HCL 20 MG/ML VL IV PRN ×2 (13:30)
[2021-03-25] MEDS ORDERED: LORazepam 2MG/ML-1ML VIAL IV PRN (13:30)
[2021-03-25] MEDS ORDERED: BENAZEPRIL HCL 10 MG TAB PO ONE (13:30)
[2021-03-25] MEDS ORDERED: CLOP75TA70 PO (13:31)
[2021-03-25] MEDS ORDERED: DONE1TAB88 PO (13:31)
[2021-03-25] MEDS ORDERED: MET25T PO (13:31)
[2021-03-25] MEDS: IPRATROPIUM BROM 0.5 MG/2.5ML INH SOL NEB SCH ×3 (14:00→22:19)
[2021-03-25 14:37] LABS: Amphetamine Screen, Urine NEGATIVE (NEGATIVE); Barbiturate Scree,Urine NEGATIVE (NEGATIVE); Benzodiazephine Screen, Urine NEGATIVE (NEGATIVE); Cannabinoid Screen, Urine NEGATIVE (NEGATIVE); Cocaine Screen, Urine NEGATIVE (NEGATIVE); Opiate Scree,Urine NEGATIVE (NEGATIVE); Phencyclidine Screen, Urine NEGATIVE (NEGATIVE)
[2021-03-25 14:40] LABS: Alcohol, Urine < 3.0 mg/dL (0-10)
[2021-03-25 14:46] LABS: Urine Bacteria FEW /hpf (None Seen); Urine Blood 1+ /uL (Negative); Urine Mucus FEW (None Seen); Urine Specific Gravity 1.012 (1.001-1.035); Urine WBC 2 /hpf (0 - 5)
[2021-03-25] MEDS ORDERED: LABETALOL HCL 5 MG/ML 4ML SYRINGE IV ONE (15:00)
[2021-03-25 15:12] VITALS: BP 197/84
[2021-03-25] MEDS: InsuLIN REG 1unit/0.01ml Soln (100units/ml) SC SCH ×2 (17:00→21:34)
[2021-03-25] MEDS: ACCU-CHEK COMFORT CURVE STRIP VI SCH ×2 (18:00→22:00)
[2021-03-25 20:00] VITALS: BP 144/85
[2021-03-25] MEDS: ATORVASTATIN 20 MG TAB PO SCH (21:59)
[2021-03-25] MEDS: CLINDAMYCIN 600MG IV 50 ML IV SCH (21:59)
[2021-03-25 22:00] VITALS: BP 144/85
[2021-03-25] MEDS: METOPROLOL TARTRATE 25 MG TAB PO SCH (22:00)
[2021-03-26] MEDS: IPRATROPIUM BROM 0.5 MG/2.5ML INH SOL NEB SCH ×4 (02:15→14:23)
[2021-03-26 05:00] VITALS: BP 157/87
[2021-03-26] MEDS: CLINDAMYCIN 600MG IV 50 ML IV SCH ×3 (05:30→22:52)
[2021-03-26] MEDS: InsuLIN REG 1unit/0.01ml Soln (100units/ml) SC SCH ×4 (06:44→22:00)
[2021-03-26] MEDS: ACCU-CHEK COMFORT CURVE STRIP VI SCH ×4 (06:44→22:07)
[2021-03-26 08:06] LABS: Basophils # (auto) 0.1 10 ^3/uL (0-0.2); Eosinophils # (auto) 0.1 10 ^3/uL (0-0.8); Eosinophils % (auto) 2.1 % (0.0-7.0); Hematocrit 35.9 % (36.0-46.0); Lymphocytes # (auto) 1.9 10 ^3/uL (0.4-5.4); Lymphocytes % (auto) 29.3 % (10.0-50.0); Mean Corpuscular Hemoglobin 29.5 pg (28.0-32.0); Mean Corpuscular Hgb Conc. 33.5 g/dL (32.0-36.0); Mean Corpuscular Volume 88.1 fL (80.0-100.0); Monocytes # (auto) 0.5 10 ^3/uL (0-1.3); Neutrophils # (auto) 3.8 10 ^3/uL (1.6-8.6); Neutrophils % (auto) 59.6 % (37.0-80.0); Nucleated Red Blood Cells % 0.2 %; Red Blood Cells 4.08 10^6/uL (4.0-5.20); Red Cell Distribution Width 12.8 % (11.8-14.3); White Blood Cell 6.5 10^3/uL (4.4-10.8)
[2021-03-26 08:16] LABS: Albumin 3.1 g/dL (3.4-5.0); Calcium 8.3 mg/dL (8.5-10.1); Magnesium 2.4 mg/dL (1.6-2.6); Potassium 4.2 mmol/L (3.5-5.1)
[2021-03-26 08:19] LABS: Bilirubin, Total 0.5 mg/dL (0.2-1.0); INR 1.04 (0.9-1.15); Partial Thromboplastin Time 24.8 sec (23.6-33.0); Phosphorus 3.2 mg/dL (2.5-4.90); Total Protein 6.3 g/dL (6.4-8.2)
[2021-03-26] MEDS: ASPirin 81 mg TAB PO SCH (09:18)
[2021-03-26] MEDS: cefTRIAXone 1GM/50ML D5W 50 ML IV SCH (09:18)
[2021-03-26] MEDS: CITALOPRAM HYDROBR 20 MG TAB PO SCH (09:19)
[2021-03-26] MEDS: ENOXAPARIN SOD 40 MG/0.4 ML SYRINGE SC SCH (09:20)
[2021-03-26] MEDS: BENAZEPRIL HCL 10 MG TAB PO SCH (10:55)
[2021-03-26] MEDS: METOPROLOL TARTRATE 25 MG TAB PO SCH ×2 (10:55→22:07)
[2021-03-26 13:00] VITALS: BP 140/83
[2021-03-26 17:00] VITALS: BP 127/71
[2021-03-26] MEDS ORDERED: IPRATROPIUM BROM 0.5 MG/2.5ML INH SOL NEB PRN (17:30)
[2021-03-26 22:00] VITALS: BP 145/95
[2021-03-26] MEDS: ATORVASTATIN 20 MG TAB PO SCH (22:07)
[2021-03-26] MEDS: SODIUM CHLORIDE 0.9% 1,000 ML IV SCH (22:53)
[2021-03-27 05:00] VITALS: BP 131/62
[2021-03-27] MEDS: CLINDAMYCIN 600MG IV 50 ML IV SCH ×4 (05:30→22:22)
[2021-03-27] MEDS: InsuLIN REG 1unit/0.01ml Soln (100units/ml) SC SCH ×4 (06:30→22:00)
[2021-03-27] MEDS: ACCU-CHEK COMFORT CURVE STRIP VI SCH ×4 (06:30→22:24)
[2021-03-27 09:00] VITALS: BP 126/67
[2021-03-27] MEDS: cefTRIAXone 1GM/50ML D5W 50 ML IV SCH (09:17)
[2021-03-27] MEDS: ASPirin 81 mg TAB PO SCH (09:18)
[2021-03-27] MEDS: CITALOPRAM HYDROBR 20 MG TAB PO SCH (09:18)
[2021-03-27] MEDS: METOPROLOL TARTRATE 25 MG TAB PO SCH ×2 (09:25→22:24)
[2021-03-27] MEDS: ENOXAPARIN SOD 40 MG/0.4 ML SYRINGE SC SCH (09:26)
[2021-03-27] MEDS: BENAZEPRIL HCL 10 MG TAB PO SCH (09:26)
[2021-03-27 13:00] VITALS: BP 132/64
[2021-03-27] MEDS: SODIUM CHLORIDE 0.9% 1,000 ML IV SCH (15:04)
[2021-03-27 16:51] VITALS: BP 140/83
[2021-03-27 21:47] VITALS: BP 145/70
[2021-03-27] MEDS: ATORVASTATIN 20 MG TAB PO SCH (22:23)
[2021-03-28 05:06] VITALS: BP 123/88
[2021-03-28] MEDS: CLINDAMYCIN 600MG IV 50 ML IV SCH ×2 (06:23→14:00)
[2021-03-28] MEDS: ACCU-CHEK COMFORT CURVE STRIP VI SCH ×3 (06:24→17:00)
[2021-03-28] MEDS: InsuLIN REG 1unit/0.01ml Soln (100units/ml) SC SCH ×3 (06:25→17:00)
[2021-03-28] MEDS ORDERED: KETOROLAC TROMETH 30 MG/ML 1ML VIAL IV PRN (08:45)
[2021-03-28 09:00] VITALS: BP 136/66
[2021-03-28] MEDS: SODIUM CHLORIDE 0.9% 1,000 ML IV SCH (09:10)
[2021-03-28 09:25] VITALS: BP 123/88
[2021-03-28] MEDS ORDERED: LEVE100012 PO (10:03)
[2021-03-28] MEDS: cefTRIAXone 1GM/50ML D5W 50 ML IV SCH (10:40)
[2021-03-28] MEDS: CITALOPRAM HYDROBR 20 MG TAB PO SCH (11:00)
[2021-03-28] MEDS: BENAZEPRIL HCL 10 MG TAB PO SCH (11:01)
[2021-03-28] MEDS: ASPirin 81 mg TAB PO SCH (11:01)
[2021-03-28] MEDS: METOPROLOL TARTRATE 25 MG TAB PO SCH (11:02)
[2021-03-28] MEDS: ENOXAPARIN SOD 40 MG/0.4 ML SYRINGE SC SCH (11:02)
[2021-03-28 13:00] VITALS: BP 124/75
[2021-03-28 17:00] VITALS: BP 136/71
== END 2021-03-28 17:30 | disposition home health service (06) | DRG 100 ==
LOC: ER 10:44 → EDBD 10:44 → TELE 12:36 → TELE-CENTR 19:58
PROVIDERS: ADMIT Hospitalist; ATTEND Family Medicine
DX: G40.901 Epilepsy, unspecified, not intractable, with status epilepticus (principal); J69.0 Pneumonitis due to inhalation of food and vomit; I13.0 Hypertensive heart and chronic kidney disease with heart failure and stage 1 through stage 4 chronic kidney disease, or unspecified chronic kidney disease; N17.9 Acute kidney failure, unspecified; E66.01 Morbid (severe) obesity due to excess calories; N18.32 Chronic kidney disease, stage 3b; F32.9 Major depressive disorder, single episode, unspecified; E11.22 Type 2 diabetes mellitus with diabetic chronic kidney disease; F02.80 Dementia in other diseases classified elsewhere, unspecified severity, without behavioral disturbance, psychotic disturbance, mood disturbance, and anxiety; F17.200 Nicotine dependence, unspecified, uncomplicated; F41.9 Anxiety disorder, unspecified; G30.9 Alzheimer's disease, unspecified; I25.119 Atherosclerotic heart disease of native coronary artery with unspecified angina pectoris; E78.5 Hyperlipidemia, unspecified; Z20.822 Contact with and (suspected) exposure to COVID-19; I50.9 Heart failure, unspecified; F01.50 Vascular dementia, unspecified severity, without behavioral disturbance, psychotic disturbance, mood disturbance, and anxiety; N31.9 Neuromuscular dysfunction of bladder, unspecified; J44.9 Chronic obstructive pulmonary disease, unspecified; Z79.82 Long term (current) use of aspirin; Z68.34 Body mass index [BMI] 34.0-34.9, adult; Z79.899 Other long term (current) drug therapy; Z82.0 Family history of epilepsy and other diseases of the nervous system; Z82.49 Family history of ischemic heart disease and other diseases of the circulatory system; Z83.3 Family history of diabetes mellitus; Z90.710 Acquired absence of both cervix and uterus; Z90.49 Acquired absence of other specified parts of digestive tract; Z88.1 Allergy status to other antibiotic agents
CPT/HCPCS: 36415; 70450; 71045; 80053; 80164; 80185; 80307; 80320; 81001; 82550; 82962; 83036; 83735; 83880; 84100; 84146; 84443; 84484; 85025; 85610; 85730; 87040; 87086; 87426; 93005; 93306; 94640; 96365; 96368; 96375; 99291; G0378; J0696; J1815; J3490; J7060

== ENCOUNTER 2021-05-16 14:32 | Inpatient (IN) | payer MEDICARE, MEDICAID ==
[~2021-05-16] VITALS: Ht 167.6 cm; Wt 113.4 kg
[~2021-05-16 14:32] MED LIST changes: +ALBU108A5 INH; -ALPR0.5T7 PO; -AMLO-489 PO; -ASPI-394 PO; -ATOR20TA50 PO; +ATOR40TA52 PO; -CLON0.1T PO; +CLOP75TA70 PO; -DOCU100T15 PO; -ESCI-34 PO; +FLUT110A INH; -FURO20TA3 PO; -HYDR12.56 PO; +IBUP800T26 PO; -LACO100T PO; -LACO50TA2 PO; +LEVE100012 PO; +LISI-716 PO; -MEM5T PO; +MET25T PO; -METF-370 PO; +METF-929 PO; +OXYC325T14 PO; -PHE100C PO; -POTA1080 PO; -SITA100T7 PO; +SITA50TA PO
[2021-05-16] MEDS ORDERED: SODIUM CHLORIDE 0.9% 1,000 ML IV ONE (14:45)
[2021-05-16 17:14] LABS: Albumin 3.7 g/dL (3.4-5.0); Calcium 8.7 mg/dL (8.5-10.1); Potassium 3.9 mmol/L (3.5-5.1)
[2021-05-16 17:18] LABS: BUN/Creatinine Ratio 14.4; Bilirubin, Total 0.5 mg/dL (0.2-1.0); Total Protein 6.7 g/dL (6.4-8.2)
[2021-05-16 17:51] LABS: Basophils # (auto) 0.1 10 ^3/uL (0-0.2); Basophils % (auto) 0.8 % (0.0-2.0); Eosinophils # (auto) 0 10 ^3/uL (0-0.8); Eosinophils % (auto) 0.3 % (0.0-7.0); Hematocrit 36.8 % (36.0-46.0); Lymphocytes # (auto) 1.4 10 ^3/uL (0.4-5.4); Lymphocytes % (auto) 13.4 % (10.0-50.0); Mean Corpuscular Hemoglobin 28.3 pg (28.0-32.0); Mean Corpuscular Hgb Conc. 32.6 g/dL (32.0-36.0); Mean Corpuscular Volume 86.7 fL (80.0-100.0); Monocytes # (auto) 0.5 10 ^3/uL (0-1.3); Neutrophils # (auto) 8.3 10 ^3/uL (1.6-8.6); Neutrophils % (auto) 80.5 % (37.0-80.0); Nucleated Red Blood Cells % 0.1 %; Red Blood Cells 4.24 10^6/uL (4.0-5.20); Red Cell Distribution Width 12.4 % (11.8-14.3); White Blood Cell 10.3 10^3/uL (4.4-10.8)
[2021-05-16] MEDS ORDERED: NITROGLYCERIN 0.4 MG SL TAB SL PRN (18:45)
[2021-05-16] MEDS ORDERED: ONDANSETRON HCL 4 MG/2 ML VIAL IV PRN (18:45)
[2021-05-16] MEDS ORDERED: DOCUSATE SOD 100 MG CAP PO PRN (18:45)
[2021-05-16] MEDS ORDERED: ACETAMINOPHEN 325 MG TAB PO PRN (18:45)
[2021-05-16] MEDS ORDERED: DEXTROSE (50%) 50ML SYRG IV PRN (19:30)
[2021-05-16] MEDS ORDERED: hydrALAZINE HCL 20 MG/ML VL IV PRN (19:30)
[2021-05-16] MEDS: SODIUM CHLORIDE 0.9% 1,000 ML IV SCH (21:15)
[2021-05-16 22:12] LABS: Urine Bacteria NONE SEEN /hpf (None Seen); Urine Blood Negative /uL (Negative); Urine Specific Gravity 1.011 (1.001-1.035); Urine WBC 1 /hpf (0 - 5)
[2021-05-16 22:17] LABS: Amphetamine Screen, Urine NEGATIVE (NEGATIVE); Barbiturate Scree,Urine NEGATIVE (NEGATIVE); Benzodiazephine Screen, Urine POSITIVE (NEGATIVE); Cannabinoid Screen, Urine NEGATIVE (NEGATIVE); Cocaine Screen, Urine NEGATIVE (NEGATIVE); Opiate Scree,Urine NEGATIVE (NEGATIVE); Phencyclidine Screen, Urine NEGATIVE (NEGATIVE)
[2021-05-16] MEDS: InsuLIN REG 1unit/0.01ml Soln (100units/ml) SC SCH (22:50)
[2021-05-16] MEDS: ACCU-CHEK COMFORT CURVE STRIP VI SCH (22:51)
[2021-05-16] MEDS ORDERED: LORazepam 2MG/ML-1ML VIAL IV PRN ×2 (23:00)
[2021-05-16] MEDS ORDERED: levETIRAcetam 500 MG/5ML INJ IV ONE (23:14)
[2021-05-17] MEDS: ACCU-CHEK COMFORT CURVE STRIP VI SCH ×4 (06:59→22:06)
[2021-05-17] MEDS: InsuLIN REG 1unit/0.01ml Soln (100units/ml) SC SCH ×4 (06:59→22:00)
[2021-05-17 07:23] LABS: Basophils # (auto) 0.1 10 ^3/uL (0-0.2); Basophils % (auto) 0.7 % (0.0-2.0); Eosinophils # (auto) 0.1 10 ^3/uL (0-0.8); Eosinophils % (auto) 1.1 % (0.0-7.0); Hematocrit 33.6 % (36.0-46.0); Hemoglobin 11.3 g/dL (12.2-16.2); Lymphocytes # (auto) 1.8 10 ^3/uL (0.4-5.4); Mean Corpuscular Hemoglobin 29.6 pg (28.0-32.0); Mean Corpuscular Hgb Conc. 33.7 g/dL (32.0-36.0); Mean Corpuscular Volume 87.7 fL (80.0-100.0); Monocytes # (auto) 0.6 10 ^3/uL (0-1.3); Monocytes % (auto) 7.9 % (0.0-12.0); Neutrophils # (auto) 4.9 10 ^3/uL (1.6-8.6); Neutrophils % (auto) 66.3 % (37.0-80.0); Nucleated Red Blood Cells % 0.1 %; Red Blood Cells 3.83 10^6/uL (4.0-5.20); Red Cell Distribution Width 12.4 % (11.8-14.3); White Blood Cell 7.3 10^3/uL (4.4-10.8)
[2021-05-17 07:33] LABS: Albumin 3.3 g/dL (3.4-5.0); Calcium 8.3 mg/dL (8.5-10.1); Potassium 3.7 mmol/L (3.5-5.1)
[2021-05-17 07:37] LABS: BUN/Creatinine Ratio 14.4; Bilirubin, Total 0.5 mg/dL (0.2-1.0); Total Protein 6.4 g/dL (6.4-8.2)
[2021-05-17] MEDS: ASPirin 81 mg TAB PO SCH (10:44)
[2021-05-17] MEDS: SODIUM CHLORIDE 0.9% 1,000 ML IV SCH (11:27)
[2021-05-17 11:59] LABS: Folate (Folic Acid) 6.08 ng/mL (5.38-24)
[2021-05-17] MEDS ORDERED: CARI350T23 PO (12:48)
[2021-05-17] MEDS ORDERED: LORazepam 2MG/ML-1ML VIAL ONE (15:56)
[2021-05-17] MEDS ORDERED: LORazepam 2MG/ML-1ML VIAL IM ONE (16:00)
[2021-05-17] MEDS ORDERED: METOPROLOL SUCCINATE XL 50 MG TAB PO ONE (17:00)
[2021-05-17 21:30] VITALS: BP 130/87
[2021-05-17] MEDS ORDERED: ATORVASTATIN 20 MG TAB PO SCH (22:00)
[2021-05-18] MEDS: SODIUM CHLORIDE 0.9% 1,000 ML IV SCH (04:05)
[2021-05-18 05:00] VITALS: BP 127/78
[2021-05-18] MEDS: InsuLIN REG 1unit/0.01ml Soln (100units/ml) SC SCH ×2 (06:18→11:30)
[2021-05-18] MEDS: ACCU-CHEK COMFORT CURVE STRIP VI SCH ×2 (06:19→12:00)
[2021-05-18] MEDS: ASPirin 81 mg TAB PO SCH (09:56)
[2021-05-18] MEDS ORDERED: METOPROLOL SUCCINATE XL 50 MG TAB PO SCH (10:00)
[2021-05-18 10:15] LABS: Albumin 3.5 g/dL (3.4-5.0); Calcium 8.6 mg/dL (8.5-10.1); Magnesium 3.1 mg/dL (1.6-2.6); Potassium 3.8 mmol/L (3.5-5.1)
[2021-05-18 10:16] LABS: Basophils # (auto) 0 10 ^3/uL (0-0.2); Basophils % (auto) 0.6 % (0.0-2.0); Eosinophils # (auto) 0.1 10 ^3/uL (0-0.8); Eosinophils % (auto) 1.7 % (0.0-7.0); Hematocrit 37.6 % (36.0-46.0); Hemoglobin 12.2 g/dL (12.2-16.2); Lymphocytes # (auto) 1.7 10 ^3/uL (0.4-5.4); Lymphocytes % (auto) 23.7 % (10.0-50.0); Mean Corpuscular Hemoglobin 27.9 pg (28.0-32.0); Mean Corpuscular Hgb Conc. 32.3 g/dL (32.0-36.0); Mean Corpuscular Volume 86.3 fL (80.0-100.0); Monocytes # (auto) 0.6 10 ^3/uL (0-1.3); Monocytes % (auto) 7.9 % (0.0-12.0); Neutrophils # (auto) 4.9 10 ^3/uL (1.6-8.6); Neutrophils % (auto) 66.1 % (37.0-80.0); Nucleated Red Blood Cells % 0.1 %; Red Blood Cells 4.36 10^6/uL (4.0-5.20); Red Cell Distribution Width 12.4 % (11.8-14.3); White Blood Cell 7.4 10^3/uL (4.4-10.8)
[2021-05-18 10:18] LABS: Bilirubin, Total 0.4 mg/dL (0.2-1.0); Total Protein 6.4 g/dL (6.4-8.2)
[2021-05-18 10:20] LABS: BUN/Creatinine Ratio 18.2
[2021-05-18 15:56] VITALS: BP 153/86
== END 2021-05-18 16:50 | disposition home or self-care (01) | DRG 101 ==
LOC: ER 14:32 → EDBD 14:32 → TELE 18:48 → TELE-WESTW 05-17 20:40
PROVIDERS: ADMIT Family Medicine; ATTEND Internal Medicine
PROC: 05H933Z Insertion of Infusion Device into Right Brachial Vein, Percutaneous Approach (ICD-10-PCS; principal; 2021-05-17)
PROC: B54MZZA Ultrasonography of Right Upper Extremity Veins, Guidance (ICD-10-PCS; 2021-05-17)
DX: G40.901 Epilepsy, unspecified, not intractable, with status epilepticus (principal); N17.9 Acute kidney failure, unspecified; I13.0 Hypertensive heart and chronic kidney disease with heart failure and stage 1 through stage 4 chronic kidney disease, or unspecified chronic kidney disease; Z68.41 Body mass index [BMI] 40.0-44.9, adult; I47.1 Supraventricular tachycardia; I50.22 Chronic systolic (congestive) heart failure; N18.9 Chronic kidney disease, unspecified; F02.80 Dementia in other diseases classified elsewhere, unspecified severity, without behavioral disturbance, psychotic disturbance, mood disturbance, and anxiety; G30.9 Alzheimer's disease, unspecified; Z86.73 Personal history of transient ischemic attack (TIA), and cerebral infarction without residual deficits; Z20.822 Contact with and (suspected) exposure to COVID-19; D63.8 Anemia in other chronic diseases classified elsewhere; E11.22 Type 2 diabetes mellitus with diabetic chronic kidney disease; E11.65 Type 2 diabetes mellitus with hyperglycemia; E66.01 Morbid (severe) obesity due to excess calories; F41.9 Anxiety disorder, unspecified; E78.5 Hyperlipidemia, unspecified; F17.200 Nicotine dependence, unspecified, uncomplicated; I25.10 Atherosclerotic heart disease of native coronary artery without angina pectoris; I35.1 Nonrheumatic aortic (valve) insufficiency; J44.9 Chronic obstructive pulmonary disease, unspecified; Z79.82 Long term (current) use of aspirin; Z79.84 Long term (current) use of oral hypoglycemic drugs; Z79.899 Other long term (current) drug therapy; Z82.0 Family history of epilepsy and other diseases of the nervous system; Z82.49 Family history of ischemic heart disease and other diseases of the circulatory system; Z83.2 Family history of diseases of the blood and blood-forming organs and certain disorders involving the immune mechanism; Z83.3 Family history of diabetes mellitus; Z90.710 Acquired absence of both cervix and uterus; Z90.49 Acquired absence of other specified parts of digestive tract
CPT/HCPCS: 36415; 70450; 71045; 80053; 80307; 81001; 82140; 82607; 82746; 82962; 83735; 84443; 85025; 87426; 93005; 96365; 99291; G0378; J7060

== ENCOUNTER 2021-08-31 18:20 | Inpatient (IN) | payer MEDICARE, MEDICAID ==
[~2021-08-31] VITALS: Ht 162.6 cm; Wt 81.8 kg
[~2021-08-31 18:20] MED LIST changes: +CARI350T23 PO
[2021-08-31] MEDS ORDERED: LORazepam 2MG/ML-1ML VIAL IV ONE (21:00)
[2021-08-31] MEDS ORDERED: levETIRAcetam 500 MG/5ML INJ IV ONE ×2 (21:42→22:15)
[2021-08-31 23:01] LABS: Basophils # (auto) 0.1 10 ^3/uL (0-0.2); Basophils % (auto) 0.7 % (0.0-2.0); Eosinophils # (auto) 0 10 ^3/uL (0-0.8); Eosinophils % (auto) 0.5 % (0.0-7.0); Hematocrit 31.6 % (36.0-46.0); Hemoglobin 10.9 g/dL (12.2-16.2); Lymphocytes # (auto) 1.7 10 ^3/uL (0.4-5.4); Mean Corpuscular Hemoglobin 29.8 pg (28.0-32.0); Mean Corpuscular Hgb Conc. 34.4 g/dL (32.0-36.0); Mean Corpuscular Volume 86.6 fL (80.0-100.0); Monocytes # (auto) 0.4 10 ^3/uL (0-1.3); Monocytes % (auto) 5.6 % (0.0-12.0); Neutrophils # (auto) 5.2 10 ^3/uL (1.6-8.6); Neutrophils % (auto) 70.2 % (37.0-80.0); Red Blood Cells 3.65 10^6/uL (4.0-5.20); Red Cell Distribution Width 12.6 % (11.8-14.3); White Blood Cell 7.4 10^3/uL (4.4-10.8)
[2021-08-31 23:23] LABS: Alanine Aminotransferase 14 U/L (13-56); Albumin 3.2 g/dL (3.4-5.0); Anion Gap 7 (5-15); Aspartate Aminotransferase 15 U/L (15-37); BUN/Creatinine Ratio 10.1; Blood Alcohol < 3.0 mg/dL (0-5); Blood Urea Nitrogen 14 mg/dL (7-18); Calcium 8.1 mg/dL (8.5-10.1); Carbon Dioxide 21 mmol/L (21-32); Chloride 113 mmol/L (98-107); GFR African American 48 mL/min; GFR Non-African American 40 mL/min; Glucose 97 mg/dL (74-106); Sodium 141 mmol/L (136-145)
[2021-08-31 23:27] LABS: Alkaline Phosphatase 83 U/L (45-117); Bilirubin, Total 0.2 mg/dL (0.2-1.0)
[2021-08-31 23:47] LABS: Urine Bacteria FEW /hpf (None Seen); Urine Blood Negative /uL (Negative); Urine Specific Gravity 1.007 (1.001-1.035); Urine WBC <1 /hpf (0 - 5)
[2021-08-31 23:58] LABS: Alcohol, Urine < 3.0 mg/dL (0-10); Amphetamine Screen, Urine NEGATIVE (NEGATIVE); Barbiturate Scree,Urine NEGATIVE (NEGATIVE); Benzodiazephine Screen, Urine NEGATIVE (NEGATIVE); Cannabinoid Screen, Urine NEGATIVE (NEGATIVE); Cocaine Screen, Urine NEGATIVE (NEGATIVE); Opiate Scree,Urine NEGATIVE (NEGATIVE); Phencyclidine Screen, Urine NEGATIVE (NEGATIVE)
[2021-09-01] MEDS ORDERED: ACETAMINOPHEN 325 MG TAB PO PRN (04:00)
[2021-09-01] MEDS ORDERED: ONDANSETRON HCL 4 MG/2 ML VIAL IV PRN (04:00)
[2021-09-01] MEDS ORDERED: DEXTROSE (50%) 50ML SYRG IV PRN (04:00)
[2021-09-01] MEDS: InsuLIN REG 1unit/0.01ml Soln (100units/ml) SC SCH ×4 (07:00→22:23)
[2021-09-01] MEDS: ACCU-CHEK COMFORT CURVE STRIP VI SCH ×4 (07:07→22:22)
[2021-09-01] MEDS: HCTZ 25 MG TAB PO SCH (10:00)
[2021-09-01] MEDS: levETIRAcetam 500 MG TAB PO SCH ×2 (10:00→22:22)
[2021-09-01] MEDS: METOPROLOL TARTRATE 25 MG TAB PO SCH ×2 (10:00→22:22)
[2021-09-01] MEDS: LISINOPRIL 10 MG TAB PO SCH (10:00)
[2021-09-01] MEDS ORDERED: PANTOPRAZOLE 40 MG TAB PO SCH (10:00)
[2021-09-01] MEDS: ENOXAPARIN SOD 40 MG/0.4 ML SYRINGE SC SCH (10:56)
[2021-09-01 11:00] VITALS: BP 142/67
[2021-09-01 13:00] VITALS: BP_SYST 137; BP_SYST 142; BP_DIAS 67
[2021-09-01 16:53] VITALS: BP 148/79
[2021-09-01 22:00] VITALS: BP 129/69
[2021-09-01] MEDS ORDERED: LORazepam 2MG/ML-1ML VIAL IV PRN (22:00)
[2021-09-01] MEDS: DONEPEZIL HYDROCHLORIDE 5 MG TAB PO SCH (22:22)
[2021-09-01] MEDS: ATORVASTATIN 20 MG TAB PO SCH (22:23)
[2021-09-02 05:00] VITALS: BP 135/61
[2021-09-02] MEDS: InsuLIN REG 1unit/0.01ml Soln (100units/ml) SC SCH ×4 (06:00→22:00)
[2021-09-02] MEDS: ACCU-CHEK COMFORT CURVE STRIP VI SCH ×4 (06:00→22:49)
[2021-09-02 07:23] LABS: Basophils # (auto) 0.1 10 ^3/uL (0-0.2); Basophils % (auto) 0.7 % (0.0-2.0); Eosinophils # (auto) 0.2 10 ^3/uL (0-0.8); Eosinophils % (auto) 2.1 % (0.0-7.0); Hematocrit 36.2 % (36.0-46.0); Hemoglobin 12.5 g/dL (12.2-16.2); Mean Corpuscular Hgb Conc. 34.4 g/dL (32.0-36.0); Mean Corpuscular Volume 87.1 fL (80.0-100.0); Monocytes # (auto) 0.5 10 ^3/uL (0-1.3); Monocytes % (auto) 6.6 % (0.0-12.0); Neutrophils % (auto) 51.6 % (37.0-80.0); Nucleated Red Blood Cells % 0.2 %; Red Blood Cells 4.16 10^6/uL (4.0-5.20); Red Cell Distribution Width 12.3 % (11.8-14.3); White Blood Cell 7.8 10^3/uL (4.4-10.8)
[2021-09-02 09:02] VITALS: BP 140/71
[2021-09-02] MEDS: METOPROLOL TARTRATE 25 MG TAB PO SCH ×2 (09:41→22:48)
[2021-09-02] MEDS: levETIRAcetam 500 MG TAB PO SCH ×2 (09:41→22:48)
[2021-09-02] MEDS: HCTZ 25 MG TAB PO SCH (09:42)
[2021-09-02] MEDS: LISINOPRIL 10 MG TAB PO SCH (09:42)
[2021-09-02] MEDS: ENOXAPARIN SOD 40 MG/0.4 ML SYRINGE SC SCH (09:43)
[2021-09-02 13:00] VITALS: BP 130/65
[2021-09-02 16:51] VITALS: BP 142/74
[2021-09-02 20:00] VITALS: BP 135/76
[2021-09-02 20:07] LABS: Anion Gap 10 (5-15); BUN/Creatinine Ratio 10.4; Blood Urea Nitrogen 17 mg/dL (7-18); Calcium 8.8 mg/dL (8.5-10.1); Carbon Dioxide 22 mmol/L (21-32); Chloride 112 mmol/L (98-107); GFR African American 40 mL/min; GFR Non-African American 33 mL/min; Glucose 110 mg/dL (74-106); Potassium 4.1 mmol/L (3.5-5.1); Sodium 144 mmol/L (136-145)
[2021-09-02 20:14] LABS: Folate (Folic Acid) 9.14 ng/mL (5.38-24)
[2021-09-02 22:00] VITALS: BP 135/76
[2021-09-02] MEDS: ATORVASTATIN 20 MG TAB PO SCH (22:48)
[2021-09-02] MEDS: DONEPEZIL HYDROCHLORIDE 5 MG TAB PO SCH (22:51)
[2021-09-03 05:00] VITALS: BP 115/61
[2021-09-03] MEDS: ACCU-CHEK COMFORT CURVE STRIP VI SCH ×4 (06:09→22:29)
[2021-09-03] MEDS: InsuLIN REG 1unit/0.01ml Soln (100units/ml) SC SCH ×4 (06:09→22:00)
[2021-09-03 09:00] VITALS: BP 106/60
[2021-09-03] MEDS: METOPROLOL TARTRATE 25 MG TAB PO SCH ×2 (10:00→22:29)
[2021-09-03] MEDS: LISINOPRIL 10 MG TAB PO SCH (10:00)
[2021-09-03] MEDS: HCTZ 25 MG TAB PO SCH (10:00)
[2021-09-03] MEDS: levETIRAcetam 500 MG TAB PO SCH ×2 (10:00→22:28)
[2021-09-03] MEDS: ENOXAPARIN SOD 40 MG/0.4 ML SYRINGE SC SCH (10:00)
[2021-09-03 13:00] VITALS: BP 89/46
[2021-09-03 17:00] VITALS: BP 123/74
[2021-09-03 20:00] VITALS: BP 128/60
[2021-09-03 20:50] VITALS: BP 130/48
[2021-09-03] MEDS: ATORVASTATIN 20 MG TAB PO SCH (22:28)
[2021-09-03] MEDS: DONEPEZIL HYDROCHLORIDE 5 MG TAB PO SCH (22:28)
[2021-09-04 04:33] VITALS: BP 120/58
[2021-09-04] MEDS: ACCU-CHEK COMFORT CURVE STRIP VI SCH ×4 (06:19→23:00)
[2021-09-04] MEDS: InsuLIN REG 1unit/0.01ml Soln (100units/ml) SC SCH ×4 (06:20→22:00)
[2021-09-04 09:31] VITALS: BP 101/43
[2021-09-04] MEDS: LISINOPRIL 10 MG TAB PO SCH (10:00)
[2021-09-04] MEDS: METOPROLOL TARTRATE 25 MG TAB PO SCH ×3 (10:00→23:00)
[2021-09-04] MEDS: levETIRAcetam 500 MG TAB PO SCH ×3 (10:00→23:00)
[2021-09-04] MEDS: HCTZ 25 MG TAB PO SCH (10:00)
[2021-09-04] MEDS: ENOXAPARIN SOD 40 MG/0.4 ML SYRINGE SC SCH (10:05)
[2021-09-04 13:54] VITALS: BP 152/50
[2021-09-04] MEDS: SODIUM CHLORIDE 0.9% 1,000 ML IV SCH (15:45)
[2021-09-04 17:25] VITALS: BP_SYST 111; BP_SYST 116; BP_DIAS 77; BP_DIAS 85
[2021-09-04 19:31] LABS: Basophils # (auto) 0.1 10 ^3/uL (0-0.2); Eosinophils # (auto) 0.4 10 ^3/uL (0-0.8); Eosinophils % (auto) 5.2 % (0.0-7.0); Hematocrit 35.8 % (36.0-46.0); Hemoglobin 12.2 g/dL (12.2-16.2); Lymphocytes # (auto) 2.3 10 ^3/uL (0.4-5.4); Lymphocytes % (auto) 32.2 % (10.0-50.0); Mean Corpuscular Hemoglobin 29.9 pg (28.0-32.0); Mean Corpuscular Hgb Conc. 34.2 g/dL (32.0-36.0); Mean Corpuscular Volume 87.4 fL (80.0-100.0); Monocytes # (auto) 0.5 10 ^3/uL (0-1.3); Monocytes % (auto) 7.1 % (0.0-12.0); Neutrophils # (auto) 3.9 10 ^3/uL (1.6-8.6); Neutrophils % (auto) 54.5 % (37.0-80.0); Nucleated Red Blood Cells % 0.7 %; Red Blood Cells 4.09 10^6/uL (4.0-5.20); Red Cell Distribution Width 12.3 % (11.8-14.3); White Blood Cell 7.2 10^3/uL (4.4-10.8)
[2021-09-04 20:00] VITALS: BP 138/71
[2021-09-04 22:00] VITALS: BP 138/71
[2021-09-04] MEDS: DONEPEZIL HYDROCHLORIDE 5 MG TAB PO SCH ×2 (22:00→23:00)
[2021-09-04] MEDS: ATORVASTATIN 20 MG TAB PO SCH ×2 (22:00→23:00)
[2021-09-04 22:02] LABS: Calcium 8.7 mg/dL (8.5-10.1); Magnesium 2.7 mg/dL (1.6-2.6); Potassium 4.2 mmol/L (3.5-5.1)
[2021-09-04 22:04] LABS: BUN/Creatinine Ratio 16.8
[2021-09-05 05:00] VITALS: BP 157/88
[2021-09-05] MEDS: SODIUM CHLORIDE 0.9% 1,000 ML IV SCH (06:11)
[2021-09-05] MEDS: ACCU-CHEK COMFORT CURVE STRIP VI SCH ×4 (06:46→22:00)
[2021-09-05] MEDS: InsuLIN REG 1unit/0.01ml Soln (100units/ml) SC SCH ×4 (06:46→22:00)
[2021-09-05 08:00] VITALS: BP 175/75
[2021-09-05] MEDS: levETIRAcetam 500 MG TAB PO SCH (10:00)
[2021-09-05] MEDS: ENOXAPARIN SOD 40 MG/0.4 ML SYRINGE SC SCH (10:00)
[2021-09-05] MEDS: METOPROLOL TARTRATE 25 MG TAB PO SCH ×2 (10:00→22:00)
[2021-09-05] MEDS: amLODIPine BESYLATE 5 MG TAB PO SCH (10:45)
[2021-09-05 11:00] VITALS: BP 148/67
[2021-09-05 12:00] VITALS: BP 157/72
[2021-09-05] MEDS ORDERED: hydrALAZINE HCL 20 MG/ML VL IV PRN (12:15)
[2021-09-05 14:27] LABS: BUN/Creatinine Ratio 14.7; Calcium 8.7 mg/dL (8.5-10.1); Potassium 3.8 mmol/L (3.5-5.1)
[2021-09-05 16:04] VITALS: BP 148/67
[2021-09-05 22:00] VITALS: BP 157/68
[2021-09-05] MEDS: DONEPEZIL HYDROCHLORIDE 5 MG TAB PO SCH (22:00)
[2021-09-05] MEDS: ATORVASTATIN 20 MG TAB PO SCH (22:00)
[2021-09-06] MEDS: SODIUM CHLORIDE 0.9% 1,000 ML IV SCH ×2 (01:30→17:15)
[2021-09-06 05:00] VITALS: BP 149/62
[2021-09-06] MEDS: InsuLIN REG 1unit/0.01ml Soln (100units/ml) SC SCH ×4 (07:00→22:00)
[2021-09-06] MEDS: ACCU-CHEK COMFORT CURVE STRIP VI SCH ×4 (07:02→22:00)
[2021-09-06 08:00] VITALS: BP 143/59
[2021-09-06] MEDS: METOPROLOL TARTRATE 25 MG TAB PO SCH ×2 (10:00→22:00)
[2021-09-06] MEDS: amLODIPine BESYLATE 5 MG TAB PO SCH (10:00)
[2021-09-06] MEDS: ENOXAPARIN SOD 40 MG/0.4 ML SYRINGE SC SCH (10:00)
[2021-09-06 11:02] VITALS: BP 138/78
[2021-09-06 12:00] VITALS: BP 152/57
[2021-09-06 16:00] VITALS: BP 147/59
[2021-09-06 19:18] LABS: BUN/Creatinine Ratio 12.4; Potassium 4.1 mmol/L (3.5-5.1)
[2021-09-06 22:00] VITALS: BP 163/62
[2021-09-06] MEDS: ATORVASTATIN 20 MG TAB PO SCH (22:00)
[2021-09-06] MEDS: DONEPEZIL HYDROCHLORIDE 5 MG TAB PO SCH (22:00)
[2021-09-07 00:20] VITALS: BP 130/55
[2021-09-07 05:30] VITALS: BP 144/54
[2021-09-07] MEDS: ACCU-CHEK COMFORT CURVE STRIP VI SCH ×2 (06:30→11:30)
[2021-09-07] MEDS: InsuLIN REG 1unit/0.01ml Soln (100units/ml) SC SCH ×2 (06:30→11:30)
[2021-09-07 08:30] VITALS: BP 140/50
[2021-09-07] MEDS: SODIUM CHLORIDE 0.9% 1,000 ML IV SCH (09:55)
[2021-09-07] MEDS: amLODIPine BESYLATE 5 MG TAB PO SCH (10:00)
[2021-09-07] MEDS: ENOXAPARIN SOD 40 MG/0.4 ML SYRINGE SC SCH (10:00)
[2021-09-07] MEDS: METOPROLOL TARTRATE 25 MG TAB PO SCH (10:00)
[2021-09-07 11:55] VITALS: BP 147/62
[2021-09-07 15:09] VITALS: BP 135/74
[2021-09-07 15:30] VITALS: BP 138/76
== END 2021-09-07 16:00 | disposition home health service (06) | DRG 101 ==
LOC: EDBD 18:20 → ER 18:22 → OVERFLOW 09-01 03:56 → CENTRAL 09-01 09:15
PROVIDERS: ADMIT Nurse Practitioner; ATTEND Internal Medicine
PROC: 05H933Z Insertion of Infusion Device into Right Brachial Vein, Percutaneous Approach (ICD-10-PCS; principal; 2021-09-06)
PROC: B54MZZA Ultrasonography of Right Upper Extremity Veins, Guidance (ICD-10-PCS; 2021-09-06)
DX: G40.909 Epilepsy, unspecified, not intractable, without status epilepticus (principal); N17.9 Acute kidney failure, unspecified; F05 Delirium due to known physiological condition; I13.0 Hypertensive heart and chronic kidney disease with heart failure and stage 1 through stage 4 chronic kidney disease, or unspecified chronic kidney disease; N18.4 Chronic kidney disease, stage 4 (severe); F03.90 Unspecified dementia, unspecified severity, without behavioral disturbance, psychotic disturbance, mood disturbance, and anxiety; E66.9 Obesity, unspecified; E78.5 Hyperlipidemia, unspecified; N31.9 Neuromuscular dysfunction of bladder, unspecified; N13.9 Obstructive and reflux uropathy, unspecified; E11.22 Type 2 diabetes mellitus with diabetic chronic kidney disease; I25.10 Atherosclerotic heart disease of native coronary artery without angina pectoris; I50.9 Heart failure, unspecified; Z68.30 Body mass index [BMI] 30.0-30.9, adult; F32.A Depression, unspecified; F41.9 Anxiety disorder, unspecified; R32 Unspecified urinary incontinence; R33.9 Retention of urine, unspecified; J44.9 Chronic obstructive pulmonary disease, unspecified; Z90.49 Acquired absence of other specified parts of digestive tract; Z82.0 Family history of epilepsy and other diseases of the nervous system; Z82.49 Family history of ischemic heart disease and other diseases of the circulatory system; Z83.2 Family history of diseases of the blood and blood-forming organs and certain disorders involving the immune mechanism; Z83.3 Family history of diabetes mellitus; Z86.73 Personal history of transient ischemic attack (TIA), and cerebral infarction without residual deficits; Z90.710 Acquired absence of both cervix and uterus; Z79.84 Long term (current) use of oral hypoglycemic drugs
CPT/HCPCS: 36415; 70450; 80048; 80053; 80307; 80320; 81001; 82607; 82746; 82962; 83735; 84443; 85025; 96365; 96375; 97116; 97163; 97530; G0378; J1815; J7060

== ENCOUNTER 2021-10-10 11:25 | Inpatient (IN) | payer MEDICARE, MEDICAID ==
[~2021-10-10] VITALS: Ht 167.6 cm; Wt 76.8 kg
[~2021-10-10 11:25] MED LIST changes: -IBUP800T26 PO
[2021-10-10] MEDS ORDERED: SODIUM CHLORIDE 0.9% 1,000 ML IV ONE (12:30)
[2021-10-10 14:31] LABS: Basophils # (auto) 0.1 10 ^3/uL (0-0.2); Basophils % (auto) 0.9 % (0.0-2.0); Eosinophils # (auto) 0.2 10 ^3/uL (0-0.8); Eosinophils % (auto) 3.5 % (0.0-7.0); Hematocrit 34.7 % (36.0-46.0); Hemoglobin 11.4 g/dL (12.2-16.2); Lymphocytes % (auto) 34.9 % (10.0-50.0); Mean Corpuscular Hemoglobin 28.9 pg (28.0-32.0); Mean Corpuscular Hgb Conc. 32.9 g/dL (32.0-36.0); Mean Corpuscular Volume 87.9 fL (80.0-100.0); Monocytes # (auto) 0.4 10 ^3/uL (0-1.3); Neutrophils % (auto) 53.7 % (37.0-80.0); Nucleated Red Blood Cells % 0.1 %; Red Blood Cells 3.95 10^6/uL (4.0-5.20); Red Cell Distribution Width 12.8 % (11.8-14.3); White Blood Cell 5.6 10^3/uL (4.4-10.8)
[2021-10-10 14:47] LABS: INR 0.99 (0.9-1.15); Partial Thromboplastin Time 29.6 sec (23.6-33.0)
[2021-10-10 14:51] LABS: Albumin 3.4 g/dL (3.4-5.0); Anion Gap 5 (5-15); Blood Alcohol < 3.0 mg/dL (0-5); Calcium 8.5 mg/dL (8.5-10.1); Carbon Dioxide 23 mmol/L (21-32); Chloride 115 mmol/L (98-107); Glucose 94 mg/dL (74-106); Potassium 4.1 mmol/L (3.5-5.1); Sodium 143 mmol/L (136-145)
[2021-10-10 14:57] LABS: Urine Bacteria NONE SEEN /hpf (None Seen); Urine Blood Negative /uL (Negative); Urine Specific Gravity 1.012 (1.001-1.035); Urine WBC 12 /hpf (0 - 5)
[2021-10-10 14:58] LABS: Alanine Aminotransferase 15 U/L (13-56); Alkaline Phosphatase 85 U/L (45-117); Aspartate Aminotransferase 17 U/L (15-37); BUN/Creatinine Ratio 10.9; Bilirubin, Total 0.3 mg/dL (0.2-1.0); Blood Urea Nitrogen 19 mg/dL (7-18); GFR African American 37 mL/min; GFR Non-African American 31 mL/min; Total Protein 6.3 g/dL (6.4-8.2)
[2021-10-10 15:13] LABS: Alcohol, Urine < 3.0 mg/dL (0-10); Amphetamine Screen, Urine NEGATIVE (NEGATIVE); Barbiturate Scree,Urine NEGATIVE (NEGATIVE); Benzodiazephine Screen, Urine NEGATIVE (NEGATIVE); Cannabinoid Screen, Urine NEGATIVE (NEGATIVE); Cocaine Screen, Urine NEGATIVE (NEGATIVE); Opiate Scree,Urine NEGATIVE (NEGATIVE); Phencyclidine Screen, Urine NEGATIVE (NEGATIVE)
[2021-10-10] MEDS ORDERED: hydrALAZINE HCL 20 MG/ML VL IV ONE (17:15)
[2021-10-10] MEDS ORDERED: METOPROLOL TARTRATE 1MG/1ML-5ML VIAL IV ONE (18:15)
[2021-10-10] MEDS ORDERED: LORazepam 2MG/ML-1ML VIAL IV ONE (18:30)
[2021-10-10] MEDS ORDERED: DEXTROSE (50%) 50ML SYRG IV PRN (19:00)
[2021-10-10] MEDS ORDERED: hydrALAZINE HCL 20 MG/ML VL IV PRN (19:00)
[2021-10-10] MEDS: SOD CHL 0.45% 1,000 ML IV SCH (19:00)
[2021-10-10] MEDS ORDERED: cefTRIAXone 1GM/50ML D5W 50 ML IV ONE (19:00)
[2021-10-10 19:26] LABS: Cholesterol 188 mg/dL (< 200); HDL Cholesterol 56 mg/dL (40-59); LDL Cholesterol 117 mg/dL (< 100); Triglycerides 86 mg/dL (< 150)
[2021-10-10] MEDS ORDERED: levETIRAcetam 500 MG TAB PO SCH (22:00)
[2021-10-10] MEDS: InsuLIN REG 1unit/0.01ml Soln (100units/ml) SC SCH (22:00)
[2021-10-10] MEDS ORDERED: HEPARIN SODIUM (PORCINE) 5000 UNITS/ML 1ML VIAL SC SCH (22:00)
[2021-10-10] MEDS ORDERED: METOPROLOL TARTRATE 25 MG TAB PO SCH (22:00)
[2021-10-10] MEDS: ACCU-CHEK COMFORT CURVE STRIP VI SCH (22:09)
[2021-10-11 05:23] LABS: Basophils # (auto) 0 10 ^3/uL (0-0.2); Basophils % (auto) 0.8 % (0.0-2.0); Eosinophils # (auto) 0.2 10 ^3/uL (0-0.8); Eosinophils % (auto) 3.8 % (0.0-7.0); Hematocrit 36.6 % (36.0-46.0); Hemoglobin 12.1 g/dL (12.2-16.2); Lymphocytes # (auto) 1.9 10 ^3/uL (0.4-5.4); Lymphocytes % (auto) 34.7 % (10.0-50.0); Mean Corpuscular Hemoglobin 29.8 pg (28.0-32.0); Mean Corpuscular Hgb Conc. 33.1 g/dL (32.0-36.0); Mean Corpuscular Volume 90.1 fL (80.0-100.0); Monocytes # (auto) 0.4 10 ^3/uL (0-1.3); Monocytes % (auto) 7.9 % (0.0-12.0); Neutrophils # (auto) 2.8 10 ^3/uL (1.6-8.6); Neutrophils % (auto) 52.8 % (37.0-80.0); Nucleated Red Blood Cells % 0.1 %; Red Blood Cells 4.06 10^6/uL (4.0-5.20); Red Cell Distribution Width 12.3 % (11.8-14.3); White Blood Cell 5.4 10^3/uL (4.4-10.8)
[2021-10-11 05:40] LABS: Albumin 3.3 g/dL (3.4-5.0); Calcium 8.7 mg/dL (8.5-10.1); Potassium 3.9 mmol/L (3.5-5.1)
[2021-10-11 05:43] LABS: Bilirubin, Total 0.3 mg/dL (0.2-1.0); Total Protein 6.2 g/dL (6.4-8.2)
[2021-10-11] MEDS: ACCU-CHEK COMFORT CURVE STRIP VI SCH ×4 (06:31→22:00)
[2021-10-11] MEDS: InsuLIN REG 1unit/0.01ml Soln (100units/ml) SC SCH ×4 (06:31→22:00)
[2021-10-11] MEDS ORDERED: cefTRIAXone 1GM/50ML D5W 50 ML IV SCH (09:00)
[2021-10-11 09:30] VITALS: BP 149/89
[2021-10-11] MEDS ORDERED: CLOPIDOGREL BISULFATE 75 MG TAB PO SCH (10:00)
[2021-10-11 13:00] VITALS: BP 153/87
[2021-10-11] MEDS: SOD CHL 0.45% 1,000 ML IV SCH (13:11)
[2021-10-11] MEDS: D5W/SOD CHL 0.45%/KCL 20MEQ 1,000 ML IV SCH (16:45)
[2021-10-11 17:00] VITALS: BP 142/87
[2021-10-11 22:00] VITALS: BP 149/82
[2021-10-11] MEDS ORDERED: LORazepam 2MG/ML-1ML VIAL IM PRN ×2 (22:30)
[2021-10-12] MEDS: D5W/SOD CHL 0.45%/KCL 20MEQ 1,000 ML IV SCH ×2 (04:50→17:31)
[2021-10-12 05:00] VITALS: BP 137/84
[2021-10-12] MEDS: InsuLIN REG 1unit/0.01ml Soln (100units/ml) SC SCH ×4 (05:32→22:00)
[2021-10-12] MEDS: ACCU-CHEK COMFORT CURVE STRIP VI SCH ×4 (05:33→22:07)
[2021-10-12 08:47] VITALS: BP 150/83
[2021-10-12] MEDS ORDERED: METOPROLOL SUCCINATE XL 50 MG TAB PO SCH (10:00)
[2021-10-12] MEDS: levETIRAcetam 500 MG TAB PO SCH ×2 (10:21→22:07)
[2021-10-12] MEDS: ASPirin 81 mg TAB PO SCH (10:21)
[2021-10-12] MEDS: METOPROLOL TARTRATE 25 MG TAB PO SCH ×2 (10:21→22:09)
[2021-10-12] MEDS: ENOXAPARIN SOD 40 MG/0.4 ML SYRINGE SC SCH (10:21)
[2021-10-12 12:07] LABS: Anion Gap 6 (5-15); BUN/Creatinine Ratio 11.3; Blood Urea Nitrogen 15 mg/dL (7-18); Calcium 8.7 mg/dL (8.5-10.1); Carbon Dioxide 22 mmol/L (21-32); Chloride 116 mmol/L (98-107); GFR African American 51 mL/min; GFR Non-African American 42 mL/min; Glucose 126 mg/dL (74-106); Sodium 144 mmol/L (136-145)
[2021-10-12 13:00] VITALS: BP 143/82
[2021-10-12] MEDS: AMOXICILLIN TRIHYDRATE 250 MG CAP PO SCH ×2 (16:06→22:07)
[2021-10-12 17:00] VITALS: BP 149/77
[2021-10-12 22:00] VITALS: BP 144/91
[2021-10-12] MEDS: ATORVASTATIN 20 MG TAB PO SCH (22:07)
[2021-10-12] MEDS: DONEPEZIL HYDROCHLORIDE 5 MG TAB PO SCH (22:07)
[2021-10-13 05:00] VITALS: BP 148/71
[2021-10-13] MEDS: AMOXICILLIN TRIHYDRATE 250 MG CAP PO SCH ×3 (05:57→21:15)
[2021-10-13] MEDS: ACCU-CHEK COMFORT CURVE STRIP VI SCH ×4 (05:57→21:18)
[2021-10-13] MEDS: InsuLIN REG 1unit/0.01ml Soln (100units/ml) SC SCH ×4 (05:57→21:17)
[2021-10-13] MEDS: D5W/SOD CHL 0.45%/KCL 20MEQ 1,000 ML IV SCH ×2 (07:30→20:50)
[2021-10-13 09:00] VITALS: BP 148/66
[2021-10-13] MEDS: ENOXAPARIN SOD 40 MG/0.4 ML SYRINGE SC SCH (10:17)
[2021-10-13] MEDS: METOPROLOL TARTRATE 25 MG TAB PO SCH ×2 (10:17→21:22)
[2021-10-13] MEDS: ASPirin 81 mg TAB PO SCH (10:17)
[2021-10-13] MEDS: levETIRAcetam 500 MG TAB PO SCH ×2 (10:18→21:16)
[2021-10-13 11:52] LABS: Potassium 4.3 mmol/L (3.5-5.1)
[2021-10-13 11:53] LABS: Calcium 8.5 mg/dL (8.5-10.1)
[2021-10-13 12:45] VITALS: BP 144/78
[2021-10-13 16:52] VITALS: BP 144/66
[2021-10-13] MEDS: DONEPEZIL HYDROCHLORIDE 5 MG TAB PO SCH (21:15)
[2021-10-13] MEDS: ATORVASTATIN 20 MG TAB PO SCH (21:16)
[2021-10-13 22:00] VITALS: BP 177/73
[2021-10-13] MEDS ORDERED: cloNIDine HCL 0.1 MG TAB PO PRN (22:45)
[2021-10-14 05:00] VITALS: BP 138/60
[2021-10-14] MEDS: AMOXICILLIN TRIHYDRATE 250 MG CAP PO SCH (05:39)
[2021-10-14] MEDS: InsuLIN REG 1unit/0.01ml Soln (100units/ml) SC SCH ×4 (06:23→22:00)
[2021-10-14] MEDS: ACCU-CHEK COMFORT CURVE STRIP VI SCH ×4 (06:23→22:00)
[2021-10-14] MEDS: levETIRAcetam 500 MG TAB PO SCH ×2 (10:00→10:25)
[2021-10-14] MEDS: ASPirin 81 mg TAB PO SCH ×2 (10:00→10:25)
[2021-10-14] MEDS: METOPROLOL TARTRATE 25 MG TAB PO SCH ×3 (10:00→22:00)
[2021-10-14] MEDS: ENOXAPARIN SOD 40 MG/0.4 ML SYRINGE SC SCH (10:26)
[2021-10-14 13:00] VITALS: BP 151/70
[2021-10-14 17:14] VITALS: BP 161/101
[2021-10-14] MEDS: AMPICILLIN INJ 1 GM in SODIUM CHL 0.9% 50 ML IV SCH (17:56)
[2021-10-14] MEDS: DONEPEZIL HYDROCHLORIDE 5 MG TAB PO SCH (22:00)
[2021-10-14] MEDS: ATORVASTATIN 20 MG TAB PO SCH (22:00)
[2021-10-14 22:05] VITALS: BP 125/66
[2021-10-15] MEDS: AMPICILLIN INJ 1 GM in SODIUM CHL 0.9% 50 ML IV SCH ×3 (00:46→12:00)
[2021-10-15 05:37] VITALS: BP 110/61
[2021-10-15] MEDS: InsuLIN REG 1unit/0.01ml Soln (100units/ml) SC SCH ×2 (05:58→11:30)
[2021-10-15] MEDS: ACCU-CHEK COMFORT CURVE STRIP VI SCH ×2 (05:58→11:30)
[2021-10-15 09:00] VITALS: BP 139/82
[2021-10-15 09:49] LABS: Basophils # (auto) 0.1 10 ^3/uL (0-0.2); Basophils % (auto) 1.1 % (0.0-2.0); Eosinophils # (auto) 0.2 10 ^3/uL (0-0.8); Eosinophils % (auto) 3.6 % (0.0-7.0); Hematocrit 36.6 % (36.0-46.0); Lymphocytes % (auto) 36.3 % (10.0-50.0); Mean Corpuscular Hemoglobin 29.1 pg (28.0-32.0); Mean Corpuscular Hgb Conc. 32.8 g/dL (32.0-36.0); Mean Corpuscular Volume 88.8 fL (80.0-100.0); Monocytes # (auto) 0.6 10 ^3/uL (0-1.3); Monocytes % (auto) 10.5 % (0.0-12.0); Neutrophils # (auto) 2.7 10 ^3/uL (1.6-8.6); Neutrophils % (auto) 48.5 % (37.0-80.0); Nucleated Red Blood Cells % 0.1 %; Red Blood Cells 4.12 10^6/uL (4.0-5.20); Red Cell Distribution Width 12.5 % (11.8-14.3); White Blood Cell 5.6 10^3/uL (4.4-10.8)
[2021-10-15 10:06] LABS: BUN/Creatinine Ratio 12.5; Calcium 8.6 mg/dL (8.5-10.1); Potassium 4.4 mmol/L (3.5-5.1)
[2021-10-15] MEDS ORDERED: CLOPIDOGREL BISULFATE 75 MG TAB PO ONE (10:30)
[2021-10-15] MEDS ORDERED: AMOX500C2 PO (10:33)
[2021-10-15] MEDS: ASPirin 81 mg TAB PO SCH (10:48)
[2021-10-15] MEDS: ENOXAPARIN SOD 40 MG/0.4 ML SYRINGE SC SCH (10:49)
[2021-10-15] MEDS: METOPROLOL TARTRATE 25 MG TAB PO SCH (10:49)
[2021-10-15 12:49] VITALS: BP 127/55
[2021-10-15 16:50] VITALS: BP 127/55
[2021-10-15] MEDS ORDERED: Glucerna Carbsteady SHAKE Vanilla 8oz PO SCH (18:00)
== END 2021-10-15 16:50 | disposition home health service (06) | DRG 64 ==
LOC: EDBD 11:25 → ER 11:25 → TELE 18:36 → TELE-CENTR 10-11 09:05 → CENTRAL 10-13 09:11
PROVIDERS: ADMIT Registered Nurse; ATTEND Internal Medicine
DX: I63.9 Cerebral infarction, unspecified (principal); G93.41 Metabolic encephalopathy; N39.0 Urinary tract infection, site not specified; I13.0 Hypertensive heart and chronic kidney disease with heart failure and stage 1 through stage 4 chronic kidney disease, or unspecified chronic kidney disease; I47.1 Supraventricular tachycardia; N17.9 Acute kidney failure, unspecified; G40.909 Epilepsy, unspecified, not intractable, without status epilepticus; E86.0 Dehydration; E11.22 Type 2 diabetes mellitus with diabetic chronic kidney disease; Z20.822 Contact with and (suspected) exposure to COVID-19; E66.9 Obesity, unspecified; E78.5 Hyperlipidemia, unspecified; F03.90 Unspecified dementia, unspecified severity, without behavioral disturbance, psychotic disturbance, mood disturbance, and anxiety; F32.A Depression, unspecified; F41.9 Anxiety disorder, unspecified; I35.1 Nonrheumatic aortic (valve) insufficiency; I50.9 Heart failure, unspecified; J44.9 Chronic obstructive pulmonary disease, unspecified; I25.10 Atherosclerotic heart disease of native coronary artery without angina pectoris; N18.32 Chronic kidney disease, stage 3b; N31.9 Neuromuscular dysfunction of bladder, unspecified; B95.2 Enterococcus as the cause of diseases classified elsewhere; F01.50 Vascular dementia, unspecified severity, without behavioral disturbance, psychotic disturbance, mood disturbance, and anxiety; R29.810 Facial weakness; Z88.6 Allergy status to analgesic agent; Z88.8 Allergy status to other drugs, medicaments and biological substances; Z79.82 Long term (current) use of aspirin; Z79.84 Long term (current) use of oral hypoglycemic drugs; Z79.899 Other long term (current) drug therapy; Z82.0 Family history of epilepsy and other diseases of the nervous system; Z82.49 Family history of ischemic heart disease and other diseases of the circulatory system; Z68.28 Body mass index [BMI] 28.0-28.9, adult; Z83.3 Family history of diabetes mellitus; Z90.710 Acquired absence of both cervix and uterus; Z83.2 Family history of diseases of the blood and blood-forming organs and certain disorders involving the immune mechanism; Z90.49 Acquired absence of other specified parts of digestive tract
CPT/HCPCS: 36415; 70450; 70551; 71045; 80048; 80053; 80061; 80307; 80320; 81001; 82542; 82550; 82962; 83036; 83605; 83735; 83874; 83880; 84443; 84484; 85025; 85610; 85730; 87086; 87088; 87186; 92610; 93005; 93306; 93886; 95819; 96361; 96374; 96375; 97110; 97116; 97163; 97530; G0378; J0696; J1815; J7060

== ENCOUNTER 2021-11-02 11:38 | Inpatient (IN) | payer MEDICARE, MEDICAID ==
[~2021-11-02] VITALS: Ht 157.5 cm; Wt 78.9 kg
[~2021-11-02 11:38] MED LIST changes: +AMOX500C2 PO; -GLIP10TA9 PO; -HYDR25TA5 PO; -METF-929 PO
[2021-11-02 14:48] LABS: Urine Bacteria NONE SEEN /hpf (None Seen); Urine Blood Negative /uL (Negative); Urine Specific Gravity 1.011 (1.001-1.035); Urine WBC 1 /hpf (0 - 5)
[2021-11-02] MEDS ORDERED: LORazepam 2MG/ML-1ML VIAL ONE (15:16)
[2021-11-02] MEDS ORDERED: LORazepam 2MG/ML-1ML VIAL IV PRN (15:30)
[2021-11-02] MEDS ORDERED: LACTATED RINGER'S 1,000 ML IV ONE (15:30)
[2021-11-02] MEDS ORDERED: NITROGLYCERIN 0.4 MG SL TAB SL PRN (15:30)
[2021-11-02] MEDS ORDERED: LORazepam 2MG/ML-1ML VIAL IV ONE (15:30)
[2021-11-02 15:47] LABS: Basophils # (auto) 0 10 ^3/uL (0-0.2); Basophils % (auto) 0.4 % (0.0-2.0); Eosinophils # (auto) 0 10 ^3/uL (0-0.8); Eosinophils % (auto) 0.3 % (0.0-7.0); Hematocrit 38.1 % (36.0-46.0); Hemoglobin 12.4 g/dL (12.2-16.2); Lymphocytes # (auto) 2.1 10 ^3/uL (0.4-5.4); Lymphocytes % (auto) 27.4 % (10.0-50.0); Mean Corpuscular Hemoglobin 28.9 pg (28.0-32.0); Mean Corpuscular Hgb Conc. 32.6 g/dL (32.0-36.0); Mean Corpuscular Volume 88.8 fL (80.0-100.0); Monocytes # (auto) 0.4 10 ^3/uL (0-1.3); Neutrophils # (auto) 5.3 10 ^3/uL (1.6-8.6); Neutrophils % (auto) 66.9 % (37.0-80.0); Nucleated Red Blood Cells % 0.1 %; Red Blood Cells 4.29 10^6/uL (4.0-5.20); Red Cell Distribution Width 12.7 % (11.8-14.3); White Blood Cell 7.8 10^3/uL (4.4-10.8)
[2021-11-02 16:12] LABS: Albumin 3.6 g/dL (3.4-5.0); BUN/Creatinine Ratio 12.3; Calcium 8.9 mg/dL (8.5-10.1); Potassium 3.4 mmol/L (3.5-5.1)
[2021-11-02 16:15] LABS: Bilirubin, Total 0.4 mg/dL (0.2-1.0); Total Protein 7.2 g/dL (6.4-8.2)
[2021-11-02] MEDS ORDERED: LORazepam 0.5 MG TAB PO PRN (23:00)
[2021-11-02] MEDS ORDERED: MORPHINE SULFATE INJ 2 MG/ml SYRG IV PRN (23:00)
[2021-11-02] MEDS ORDERED: DOCUSATE SOD 100 MG CAP PO PRN (23:00)
[2021-11-02] MEDS ORDERED: HYDROcodone-ACET 5/325MG TAB PO PRN (23:00)
[2021-11-02] MEDS ORDERED: ONDANSETRON HCL 4 MG/2 ML VIAL IV PRN (23:00)
[2021-11-02] MEDS ORDERED: hydrALAZINE HCL 20 MG/ML VL IV PRN (23:00)
[2021-11-02] MEDS ORDERED: SODIUM CHLORIDE 0.9% 1,000 ML IV SCH (23:00)
[2021-11-02] MEDS ORDERED: ACETAMINOPHEN 325 MG TAB PO PRN (23:00)
[2021-11-03 01:24] LABS: Phosphorus 2.5 mg/dL (2.5-4.90)
[2021-11-03 02:09] LABS: INR 1.02 (0.9-1.15); Partial Thromboplastin Time 30.8 sec (23.6-33.0)
[2021-11-03] MEDS ORDERED: CLINDAMYCIN 600MG IV 50 ML IV SCH (06:00)
[2021-11-03] MEDS ORDERED: POTASSIUM CHL 20 Meq TABLET PO ONE (08:45)
[2021-11-03] MEDS ORDERED: ALBUTEROL SULF 2.5 MG/0.5ML(0.5%) NEB SOLN NEB PRN (08:45)
[2021-11-03] MEDS ORDERED: DEXTROSE (50%) 50ML SYRG IV PRN (08:45)
[2021-11-03] MEDS ORDERED: LACTATED RINGER'S 1,000 ML IV ONE (08:45)
[2021-11-03] MEDS ORDERED: LACTATED RINGER'S 2,000 ML IV ONE (08:45)
[2021-11-03] MEDS ORDERED: cefTRIAXone 1GM/50ML D5W 50 ML IV SCH (09:00)
[2021-11-03] MEDS ORDERED: NIFEdipine ER 30 MG TAB PO ONE (09:00)
[2021-11-03] MEDS ORDERED: IPRATROPIUM BROM 0.5 MG/2.5ML INH SOL NEB SCH (10:00)
[2021-11-03] MEDS: CLOPIDOGREL BISULFATE 75 MG TAB PO SCH (10:00)
[2021-11-03] MEDS: BUDESONIDE (INHALATION) 0.5 MG/2 ML NEB NEB SCH ×2 (10:00→18:11)
[2021-11-03] MEDS: FAMOTIDINE (10MG/ML) 2ML VL IV SCH (10:25)
[2021-11-03] MEDS: ENOXAPARIN SOD 30 MG/0.3 ML SYRINGE SC SCH (10:26)
[2021-11-03] MEDS ORDERED: IPRATROPIUM BROM 0.5 MG/2.5ML INH SOL NEB PRN (11:15)
[2021-11-03] MEDS: InsuLIN REG 1unit/0.01ml Soln (100units/ml) SC SCH ×3 (11:30→22:00)
[2021-11-03] MEDS: ACCU-CHEK COMFORT CURVE STRIP VI SCH ×3 (11:30→23:59)
[2021-11-03 13:00] VITALS: BP 98/47
[2021-11-03 14:00] VITALS: BP 164/65
[2021-11-03 14:05] LABS: Basophils # (auto) 0.1 10 ^3/uL (0-0.2); Eosinophils # (auto) 0.1 10 ^3/uL (0-0.8); Hematocrit 34.9 % (36.0-46.0); Hemoglobin 11.5 g/dL (12.2-16.2); Lymphocytes # (auto) 1.7 10 ^3/uL (0.4-5.4); Mean Corpuscular Hemoglobin 29.4 pg (28.0-32.0); Mean Corpuscular Volume 89.2 fL (80.0-100.0); Monocytes # (auto) 0.6 10 ^3/uL (0-1.3); Neutrophils # (auto) 4.5 10 ^3/uL (1.6-8.6); Nucleated Red Blood Cells % 0.1 %; Red Blood Cells 3.91 10^6/uL (4.0-5.20); Red Cell Distribution Width 12.6 % (11.8-14.3)
[2021-11-03] MEDS: D5W/SOD CHLO 0.9% 1,000 ML IV SCH ×2 (14:06→23:59)
[2021-11-03 17:00] VITALS: BP 164/65
[2021-11-03 20:00] VITALS: BP 164/65
[2021-11-03 22:00] VITALS: BP 138/86
[2021-11-03 23:45] LABS: INR 1.03 (0.9-1.15); Partial Thromboplastin Time 30.2 sec (23.6-33.0)
[2021-11-03 23:52] LABS: Albumin 1.5 g/dL (3.4-5.0); Magnesium 1.1 mg/dL (1.6-2.6); Potassium 3.9 mmol/L (3.5-5.1); Uric Acid 7.3 mg/dL (2.6-6.0)
[2021-11-03 23:57] LABS: Bilirubin, Total 0.3 mg/dL (0.2-1.0); CRP High Sensitivity 0.32 mg/dL (< 0.3); Phosphorus 1.3 mg/dL (2.5-4.90); Total Protein 5.7 g/dL (6.4-8.2)
[2021-11-03] MEDS: ATORVASTATIN 20 MG TAB PO SCH (23:59)
[2021-11-04 00:02] LABS: Calcium 5.1 mg/dL (8.5-10.1)
[2021-11-04 05:00] VITALS: BP 130/70
[2021-11-04 05:51] LABS: Albumin 2.7 g/dL (3.4-5.0); BUN/Creatinine Ratio 11.5; Calcium 8.4 mg/dL (8.5-10.1); Phosphorus 2.4 mg/dL (2.5-4.90); Potassium 3.6 mmol/L (3.5-5.1)
[2021-11-04] MEDS: ACCU-CHEK COMFORT CURVE STRIP VI SCH ×4 (06:41→21:55)
[2021-11-04] MEDS: InsuLIN REG 1unit/0.01ml Soln (100units/ml) SC SCH ×4 (06:41→21:39)
[2021-11-04 09:00] VITALS: BP 167/70
[2021-11-04] MEDS: CLOPIDOGREL BISULFATE 75 MG TAB PO SCH (10:24)
[2021-11-04] MEDS: D5W/SOD CHLO 0.9% 1,000 ML IV SCH ×2 (10:24→18:30)
[2021-11-04] MEDS: FAMOTIDINE (10MG/ML) 2ML VL IV SCH (10:24)
[2021-11-04] MEDS: ENOXAPARIN SOD 30 MG/0.3 ML SYRINGE SC SCH (10:25)
[2021-11-04] MEDS: NIFEdipine ER 30 MG TAB PO SCH (10:25)
[2021-11-04] MEDS: BUDESONIDE (INHALATION) 0.5 MG/2 ML NEB NEB SCH ×2 (10:39→17:46)
[2021-11-04 13:00] VITALS: BP 171/79
[2021-11-04] MEDS: ATORVASTATIN 20 MG TAB PO SCH (21:55)
[2021-11-04 22:09] VITALS: BP 137/74
[2021-11-05] MEDS: D5W/SOD CHLO 0.9% 1,000 ML IV SCH ×2 (04:30→15:34)
[2021-11-05 04:42] VITALS: BP 130/58
[2021-11-05] MEDS: InsuLIN REG 1unit/0.01ml Soln (100units/ml) SC SCH ×4 (05:57→22:00)
[2021-11-05] MEDS: ACCU-CHEK COMFORT CURVE STRIP VI SCH ×4 (05:58→22:15)
[2021-11-05 09:00] VITALS: BP 124/61
[2021-11-05] MEDS: FAMOTIDINE (10MG/ML) 2ML VL IV SCH (10:53)
[2021-11-05] MEDS: CLOPIDOGREL BISULFATE 75 MG TAB PO SCH (10:54)
[2021-11-05] MEDS: NIFEdipine ER 30 MG TAB PO SCH (10:54)
[2021-11-05] MEDS: ENOXAPARIN SOD 30 MG/0.3 ML SYRINGE SC SCH (10:55)
[2021-11-05 13:00] VITALS: BP 129/64
[2021-11-05] MEDS: BUDESONIDE (INHALATION) 0.5 MG/2 ML NEB NEB SCH ×2 (16:49→17:59)
[2021-11-05 17:00] VITALS: BP 137/67
[2021-11-05 20:39] VITALS: BP 137/67
[2021-11-05 22:00] VITALS: BP 159/73
[2021-11-05] MEDS: ATORVASTATIN 20 MG TAB PO SCH (22:15)
[2021-11-06 05:00] VITALS: BP 136/67
[2021-11-06] MEDS: BUDESONIDE (INHALATION) 0.5 MG/2 ML NEB NEB SCH (06:00)
[2021-11-06] MEDS: InsuLIN REG 1unit/0.01ml Soln (100units/ml) SC SCH ×2 (06:13→11:47)
[2021-11-06] MEDS: ACCU-CHEK COMFORT CURVE STRIP VI SCH ×2 (06:13→11:47)
[2021-11-06] MEDS: D5W/SOD CHLO 0.9% 1,000 ML IV SCH ×2 (06:13→11:50)
[2021-11-06 08:10] VITALS: BP 150/85
[2021-11-06] MEDS ORDERED: LEVE500T32 PO (08:49)
[2021-11-06] MEDS: CLOPIDOGREL BISULFATE 75 MG TAB PO SCH (09:58)
[2021-11-06] MEDS: FAMOTIDINE (10MG/ML) 2ML VL IV SCH (09:58)
[2021-11-06] MEDS: ENOXAPARIN SOD 30 MG/0.3 ML SYRINGE SC SCH (10:00)
[2021-11-06] MEDS: NIFEdipine ER 30 MG TAB PO SCH (10:03)
== END 2021-11-06 15:38 | disposition home health service (06) | DRG 100 ==
LOC: EDBD 11:38 → ER 11:38 → OVERFLOW 15:19 → CENTRAL 11-03 08:05
PROVIDERS: ADMIT Hospitalist; ATTEND Family Medicine
DX: G40.909 Epilepsy, unspecified, not intractable, without status epilepticus (principal); N17.0 Acute kidney failure with tubular necrosis; G93.41 Metabolic encephalopathy; I13.0 Hypertensive heart and chronic kidney disease with heart failure and stage 1 through stage 4 chronic kidney disease, or unspecified chronic kidney disease; J44.0 Chronic obstructive pulmonary disease with (acute) lower respiratory infection; E11.22 Type 2 diabetes mellitus with diabetic chronic kidney disease; E11.65 Type 2 diabetes mellitus with hyperglycemia; Z20.822 Contact with and (suspected) exposure to COVID-19; E78.5 Hyperlipidemia, unspecified; F01.50 Vascular dementia, unspecified severity, without behavioral disturbance, psychotic disturbance, mood disturbance, and anxiety; I50.9 Heart failure, unspecified; N18.31 Chronic kidney disease, stage 3a; E86.0 Dehydration; E07.9 Disorder of thyroid, unspecified; F32.A Depression, unspecified; F41.9 Anxiety disorder, unspecified; I25.10 Atherosclerotic heart disease of native coronary artery without angina pectoris; N31.9 Neuromuscular dysfunction of bladder, unspecified; Z79.02 Long term (current) use of antithrombotics/antiplatelets; Z79.51 Long term (current) use of inhaled steroids; Z79.82 Long term (current) use of aspirin; Z79.899 Other long term (current) drug therapy; Z82.0 Family history of epilepsy and other diseases of the nervous system; Z82.49 Family history of ischemic heart disease and other diseases of the circulatory system; Z88.8 Allergy status to other drugs, medicaments and biological substances; Z88.6 Allergy status to analgesic agent; Z83.2 Family history of diseases of the blood and blood-forming organs and certain disorders involving the immune mechanism; Z83.3 Family history of diabetes mellitus; Z90.710 Acquired absence of both cervix and uterus; Z91.19 Patient's noncompliance with other medical treatment and regimen; Z90.49 Acquired absence of other specified parts of digestive tract; Z86.73 Personal history of transient ischemic attack (TIA), and cerebral infarction without residual deficits
CPT/HCPCS: 36415; 70450; 71045; 80053; 80061; 80069; 81001; 82542; 82550; 82728; 82962; 83615; 83690; 83735; 83880; 84100; 84146; 84443; 84484; 84550; 85025; 85049; 85379; 85610; 85652; 85730; 86141; 87040; 87086; 93005; 94640; 96365; 96375; 99291; G0378; J0696; J1815; J3490; J7060